=== PATIENT | male | born 1965 | race Caucasian/White ===

== ENCOUNTER 2025-04-22 20:28 | Inpatient (IN) | payer MEDICAID, OTHER, SELFPAY ==
[2025-04-22] VITALS (11 sets, daily range): BP systolic 168–245; BP diastolic 105–145
[2025-04-22] MEDS: NSS 1000 IV (18:15)
[2025-04-22] MEDS: ATIVAN 2 MG IV (18:16)
[2025-04-22] MEDS: ZOFRAN 4 MG IV (18:16)
[2025-04-22 18:17] LABS: Hematocrit 39.6 % (39.0-52.0); Hemoglobin 14.3 g/dL (13.0-18.0); Mean Corp Hgb Conc. 36.1 g/dL (33.0-37.0); Mean Corpuscular Volume 91.0 fL (80.0-94.0); Nucleated Red Blood Cells % 0 % (-); Platelet Count 310 10^3/uL (130-400); Red Cell Dist. Width 12.8 % (11.5-14.5)
[2025-04-22 18:30] LABS: AST (SGOT) 142 U/L (17-59); Albumin 4.1 g/dl (3.5-5.0); Alkaline Phosphatase 158 U/L (38-126); Blood Urea Nitrogen 9 mg/dl (9-20); Calcium 9.3 mg/dl (8.4-10.2); Carbon Dioxide 25 mmol/L (22-30); Chloride 106 mmol/L (98-107); Glucose 143 mg/dl (70-99); Lipase 104 U/L (23-300); Potassium 2.9 mmol/L (3.5-5.1); Sodium 143 mmol/L (135-145); Total Protein 9.8 g/dl (6.3-8.2); eGFR > 60.00
[2025-04-22 18:40] LABS: ALT (SGPT) 89 U/L (0-50)
--- NOTE | 2025-04-22 18:54 | ED.GENMED ---
History of Present Illness
General
Chief Complaint: Withdrawal Symptoms
Time Seen by Provider: 04/22/25 17:42
History of Present Illness
History of Present Illness:
59-year-old male presents from [facility] due to intractable nausea vomiting and tremors. He was brought into corrections last night and admits to using trying and fentanyl yesterday, states he uses 4-5 bags of each daily.
History is otherwise limited as the patient does not cooperate on exam. He is noted to be writhing and diaphoretic
Review of Systems
Review of Systems
Allergies reviewed?: Yes
All Other Systems: ROS reviewed and negative except as documented in HPI and ROS
Phy Exam
Physical Exam
Physical Exam:
GEN: Ill, diaphoretic,
HEENT: Oral mucosa moist, no scleral icterus
Cardiac: Tachycardic
Lung: No respiratory distress, no tachypnea, lungs clear to auscultation
MSK: No gross deformity or injuries
Skin: Good color, no pallor or jaundice, no rashes
Neuro: Alert, moves all extremities
Psych: Calm, cooperative
Course
Orders/Labs/Results
Orders:
Orders
04/22/25 Dinner
NPO
Allow oral meds: No
Allow clear liquids: No
04/22/25 17:54
Lorazepam [Ativan] 2 mg .ROUTE .STK-MED ONE
Ondansetron Injectable [Zofran] 4 mg .ROUTE .STK-MED ONE
04/22/25 17:57
Clonidine [Catapres] 0.2 mg PO NOW STA
Lorazepam [Ativan] 2 mg IV NOW STA
Ondansetron Injectable [Zofran] 4 mg IV NOW STA
Tizanidine [Zanaflex] 4 mg PO NOW STA
04/22/25 18:00
0.9% Sodium Chloride 1000 ml [Nss] 1,000 ml IV BOLUS
04/22/25 18:08
Complete Blood Count/With Diff Urgent
Comprehensive Metabolic Panel Urgent
Lipase Urgent
Magnesium Urgent
Comment: ADD ON
Phosphorus Urgent
Comment: ADD ON
04/22/25 18:49
Electrocardiogram (*1) Urgent
Reason for Study: QTc Monitoring
EKG- Treatment ONCE
04/22/25 18:50
Lactated Ringers [Lr] 1,000 ml IV BOLUS
04/22/25 18:54
Potassium Chloride [KCl] 20 meq 0.9% Sodium Chloride 150 ml [Nss] 150 ml IV NOW
04/22/25 19:04
Diphenhydramine [Benadryl] 25 mg IV NOW STA
Prochlorperazine [Compazine] 10 mg IV NOW STA
04/22/25 20:11
Admit/Transfer Patient As Directed
Co-Sign Provider:
Level of Care: Inpatient admission
Assign to:: ICU
Physician / Group: Drew Galvez
Diagnosis: opiate withdraw, hypertensive urgency, hypokalemia
Reason for Hospitalization: opiate withdraw, hypertensive urgency, hypokalemia
Expected length of stay greater than two midnights?: Yes
ELOS- Estimated Length of Stay in days: 3
I certify the patient meets the requirements for IP care: Yes
PRN Pain Medication Management As Directed
May give lesser potent ordered pain med per pt: Yes
preference::
Protocol:: Medication orders for pain may be administered in a
manner that supports deferring to patient preference
when the pt is:
- Requesting an ordered lesser potent pain medication.
Least to most potent pain medications are defined
as: acetaminophen < NSAID < tramadol < opioids
(morphine, oxycodone, hydromorphone).
- Requesting a lesser dose of the same medication IF
ORDERED.
- Requesting a less intrusive route of administration
if both routes are prescribed by the provider (PO <
IV).
04/22/25 20:12
Code Status As Directed
Resuscitation Status: Full Code
04/22/25 20:15
Dexmedetomidine 400 Mcg/100 ml [Precedex] 400 mcg in 100 ml IV PER PROTOCOL
Indication:: Light Sedation
Goal:: RASS 0 to -2
Maximum dose in mcg/kg/hr:: 1.5
Initial dose in mcg/kg/hr:: 0.2
Titration Instructions:: Titrate by 0.1-0.2 mcg/kg/hr every 30 minutes until RASS 0 to -2 achieved.
Taper Instructions:: If RASS is at or below goal for 4 consecutive hours, decrease infusion by
Taper Instructions:: 0.2 mcg/kg/hr every 2 hours to off.
Over-sedation Instructions:: If CPOT 0-2 (at goal) AND RASS -3 to -5 (below goal) decrease sedative by
Over-sedation Instructions:: 50% first. If pain score remains at goal and RASS remains below goal in
Over-sedation Instructions:: 1 hour, decrease opioid infusion by 50%.
Notify provider:: for sustained HR < 50 bpm or SBP < 90 mmHg
04/22/25 20:18
Urine Drug Abuse Screen Stat
Date Specimen was Collected: 04/23/25
Time Specimen was Collected: 00:25
04/22/25 20:19
Potassium Chloride [KCl] 40 meq PO NOW STA
04/22/25 21:48
HydrALAZINE [Apresoline] 10 mg IV Q4HPRN PRN
Prochlorperazine [Compazine] 5 mg IV Q6HPRN PRN
04/22/25 21:48
Electrocardiogram (*1) Urgent
Reason for Study: Other
Other Reason for Exam: baseline ICU
Comment: upon arrival to ICU (if not done in ED or in last 24 hours)
Front Office Secretary Consult Urgent
Consulting Provider: Earlene Mora
Was physician already notified: Yes
Activity As Directed
Activity Level: As Tolerated
Bedside Glucose Monitoring-ONCE As Directed
Comment: upon arrival to ICU
Notify MD As Directed
Notify physician if: While in ICU level of care:
glucose greater than or equal to 180 mg/dL once, contact provider to initiate Critical
Care Glycemic Protocol Target Range 140-180 mg/dL.
Vital Signs As Directed
Frequency: Per unit guidelines
Weight As Directed
Frequency: Daily
Comment: height and weight upon arrival to ICU.
CR Chest Portable - 1 View Urgent
Comment: upon ICU arrival if not done in ED or in last 24hr
Reason For Exam: baseline ICU
Reason Study Needs to be Portable: Patient Unstable
DX Deep Vein Thrombosis Video Routine
DX Deep Vein Thrombosis Video Routine
04/22/25 22:40
Protime/PTT Urgent
Comment: upon arrival to ICU (if not done in ED or in last 24 hours)
04/23/25 00:00
Heparin 5,000 units SC Q8
04/23/25 06:00
Basic Metabolic Panel IN AM
Complete Blood Count/No Diff IN AM
04/24/25 06:00
Basic Metabolic Panel IN AM
Complete Blood Count/No Diff IN AM
04/25/25 06:00
Basic Metabolic Panel IN AM
Complete Blood Count/No Diff IN AM
Abnormal Lab Results
04/22/25
18:08
WBC 18.3 H 10^3/uL
(4.8-10.8)
RBC 4.35 L 10^6/uL
(4.70-6.10)
MCH 32.9 H pg
(27.0-31.0)
MPV 11.2 H fL
(7.4-10.4)
Abs Immat Gran (auto) 0.1 H 10^3/uL
(0-0.05)
Absolute Neuts (auto) 15.5 H 10^3/uL
(1.4-6.5)
Absolute Monos (auto) 1.1 H 10^3/uL
(0.1-0.6)
Neutrophils % 84.8 H %
(42.2-75.2)
Lymphocytes % 8.5 L %
(20.5-51.1)
Potassium 2.9 L mmol/L
(3.5-5.1)
Creatinine 0.5 L mg/dL
(0.7-1.3)
Glucose 143 H mg/dl
(70-99)
AST 142 H U/L
(17-59)
ALT 89 H U/L
(0-50)
Alkaline Phosphatase 158 H U/L
(38-126)
Total Protein 9.8 H g/dl
(6.3-8.2)
04/22/25 18:08
04/22/25 18:08
Vital Signs
Initial and Last Documented VS:
Initial Vital Signs
Temp Pulse Resp
98.0 F 99 20
04/22/25 17:28 04/22/25 17:28 04/22/25 17:28
Last Documented Vital Signs
Temp Pulse Resp BP Pulse Ox
98.0 F 129 33 174/129 99
04/22/25 17:28 04/23/25 00:17 04/22/25 23:45 04/23/25 00:17 04/22/25 23:45
Procedures
IV Access
Indication: Emergent access required, RN unable to obtain and Physician skill needed
Performed by:: Leandro Lucas PA-C
Site:: L basilic
Gauge:: 18
Ultrasound Guidance: Yes
MDM/Problems Addressed
MDM/Problems Addressed:
59-year-old male presenting [facility] with xylazine and fentanyl withdrawal found to be profoundly hypertensive and tachycardic requiring IV benzodiazepines as well as alpha-ziggy therapy. Ultimately due to worsening symptoms and worsening
agitation the patient was started on dexmedetomidine infusion and will be admitted to the intensive care unit for further management. Maintaining airway adequately on infusion during his time in the ED did not require mechanical ventilation
Comment
Comment:
EKG independently interpreted by me shows a sinus tachycardia at a rate of 102 with a normal QT interval
*Pulse Oximetry
Oxygen Mode of Delivery: Room air
Patient hypoxic: no
*Critical Care Note
Total Time (30-74mins, 75-104mins- exclusive of procedures): 80 mins
comment:
Critical care time: 80 minutes
Critical care time was exclusive of: Separately billable procedures, treating other patients, and teaching time
Critical care was necessary to treat or prevent imminent or life-threatening deterioration of the following conditions: Hypertensive crisis, xylazine withdrawal
Critical care time spent personally by me on the following activities:
[x] Review of old charts
[x] Obtaining history from patient or surrogate
[x] Ordering and review of the laboratory studies
[ ] Ordering and review of radiographic studies
[x] Ordering and performing treatments and interventions
[x] Patient patient's response to treatment
[ ] Development of treatment plan with patient or surrogate
ED Attending Note
-
Portions of this chart may have been created with voice recognition software.� Occasional wrong word or��sound alike� substitutions may have occurred due to the inherent limitations of voice recognition software.
Discharge Plan
Departure
Patient Disposition: Admit
Date of Disposition: 04/22/25
Time of Disposition: 19:49
Admit to: ICU
Presentation/result/management discussed w/ accepting MD/DO: Hospitalist
Discharge Problem:
Multiple substance withdrawal
Interventions
Interventions:
*General Assessment Last Done: 04/22/25 17:28
*ED- Fall Risk Assessment Last Done: 04/22/25 19:19
*Nursing Disposition Last Done: 04/22/25 21:59
ED- Neurological Assessment Last Done: 04/22/25 19:19
ED-Psychological Assessment Last Done: 04/22/25 19:19
Discharge Date and Time
Discharge Date/Time: 04/22/25 22:00
[2025-04-22] MEDS: COMPAZINE 10 MG IV (19:07)
[2025-04-22] MEDS: BENADRYL 25 MG IV (19:07)
[2025-04-22] MEDS: KCL 160 MEQ IV (19:07)
[2025-04-22] MEDS: LR 1000 IV (19:08)
--- NOTE | 2025-04-22 19:53 | HPS.HSE ---
Family Physician
-
Family Physician: [facility]
Chief Complaint
-
withdraw symptoms
History of Present Illness
Patient is a 59-year-old male from [facility] brought to [facility] ED for evaluation of tremors and intractable nausea and vomiting. Patient arrived at [facility] last night and admitted to Fentanyl use of 4-5 bags daily. Unable to obtain any HPI or PMH as patient
not cooperative with assessment questions. He presents tremorous and diaphoretic with tachycardia and hypertension.
Medical History
Past Medical History
Past Medical History: Reports None (unable to obtain )
Past Surgical History: Reports None (unable to obtain )
Social History
Unable to obtain full social history at this time due to: Other (patient not cooperative with exam )
Family History
Family History: Unable to Obtain
Allergies / Home Medications
Allergies reflects when Allergies were last updated in [facility].
Home Medications with original date entered in [facility]
Allergy/Medication List:
Allergies
Allergy/AdvReac Type Severity Reaction Status Date / Time
No Known Allergies Allergy Unverified 04/22/25 17:28
Review of Systems
-
Unable to obtain full review of systems at this time due to: Other (patient uncooperative with exam )
Physical Exam
Vital Signs
Vital Signs
Temp Pulse Resp BP Pulse Ox
98.0 F 124 22 201/145 100
04/22/25 17:28 04/22/25 19:00 04/22/25 19:00 04/22/25 19:00 04/22/25 19:15
Physical Exam
General: Other (tremulous and diaphoretic )
HEENT: Moist mucous membranes
Respiratory: Clear and Non Labored Respirations
Cardiac: Regular Rhythm and Tachycardia
GI: Soft and Normal Bowel Sounds
Rectal: Deferred by Provider
Musculoskeletal: No Clubbing, No Cyanosis and No Edema
Skin: IV/Catheter Site
Neuro: Alert
Psych: Calm
Laboratory Results
-
04/22/25 18:08
04/22/25 18:08
Laboratory Results
Total Bilirubin 1.3 mg/dl (0.2-1.3) 04/22/25 18:08
AST 142 U/L (17-59) H 04/22/25 18:08
ALT 89 U/L (0-50) H 04/22/25 18:08
Alkaline Phosphatase 158 U/L (38-126) H 04/22/25 18:08
Lipase 104 U/L (23-300) 04/22/25 18:08
Data Reviewed
-
Medical Tests (Nuc Med, Echo, EKG etc): Report Reviewed by me (EKG: SINUS TACHYCARDIA BIATRIAL ENLARGEMENT)
Lab Data: Labs Reviewed by me (WBC 18.3, Neut 84.8, K+ 2.9, AST 142, ALT 89, Alk Phos 158, tot protein 9.8)
Impression/Plan
-
IMPRESSION/PLAN:
#withdraw symptoms 2/2 opiate use disorder
reported 4-5 bag fentanyl use daily to [facility] at intake, stated last use in 2 days
WBC 18.3, Neut 84.8, K+ 2.9, AST 142, ALT 89, Alk Phos 158, tot protein 9.8
EKG: SINUS TACHYCARDIA
BIATRIAL ENLARGEMENT
- Admit to ICU
- Precedex gtt
- PRN IV Benadryl
- Consult Facilities Coordinator
- supportive care
#hypertensive urgency
- clonidine given in ED
- monitor need for further PRN medication
- Hydralazine 10mg PRN SBP>180/DBP>110
#hypokalemia
K+2.9
- KCl given IV and PO
- monitor lytes and replete as indicated
Code status: full code
DVT prophylaxis: heparin sq
[2025-04-22] MEDS: CATAPRES 0.2 MG PO (20:05)
[2025-04-22] MEDS: ZANAFLEX 4 MG PO (20:05)
--- NOTE | 2025-04-22 20:25 | W.PN.UPDATE ---
Update Note
Progress Note Update
I could not get any information from the patient is displaying active WDS
Information gathered by chart review and speaking with the ER staff.
This note serves as an addendum to the H&P by knit tubing dyer JARRET Scarlet Martin
HPI
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
- was brought into [facility] last night
- reports using IV Trank ( Xylazine) & Fentanyl yesterday
- uses 4-5 bags of each daily.
- not cooperate on exam.
- writhing and diaphoretic
Selected Entries
04/22/25
18:41 04/22/25
19:00
Blood pressure 203/133 201/145
PE
Gen: looks toxic and diaphoretic ,
HEENT: flushed face , easily arousable
Lungs: symmetric AE
Cor: tachycardic , hypertensive
Abdomen: benign exam
CREAM BEATER: severe peripheral tremors of
Skin ;multiple healing track garcia
MS: no edema , mottled skin in Tisha
Relevant Data
Labs
04/22/25
18:08
WBC 18.3 H
Potassium 2.9 L
Creatinine 0.5 L
eGFR > 60.00
AST 142 H
ALT 89 H
Alkaline Phosphatase 158 H
Total Protein 9.8 H
Lipase 104
EKG
SINUS TACHYCARDIA
BIATRIAL ENLARGEMENT
ABNORMAL ECG
NO PREVIOUS ECGS AVAILABLE
Last hospitalist admission:
ASSESSMENT & PLAN
Pending Rx reconciliation
Acute severe Fentanyl & Xylazine WDS
Severe autonomic hyperarousal symptoms
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
- ER Rx;
Clonidine 0.2mg + IV Benadryl 25mg + IV Ativan 2mg + LR IV 1L + IV Compazine 10 mg + Zanaflex 4mg PO
- so far protecting AW
- hi risk for intubation
- Initiated Precedex gtt at ER
- LR IV
Hypokalemia
- s/p IV KCL kedar 20 + PO KCL 40
Hypertensive urgency due to acute severe Fentanyl & Xylazine WDS
- IV Hydralazine 10mg q4H PRN fo SBP > 185, DBP > 110
- May need Nicardipine gtt
DVT Px: SQH
Full code
ICU
Total Critical Care Time__55___ minutes.
I was immediately available to the patient and staff.
I personally examined, reviewed labs, diagnostic images/reports, interpretations, treatment plans, discussed patient care with other providers and family or caregivers (if patient is unable to make decisions), entered orders as appropriate and
documented the medical record.
[2025-04-22] MEDS: PRECEDEX 100 IV (20:34)
[2025-04-22 22:07] LABS: Glucose - Point of Care 110 mg/dl (70-99)
[2025-04-22 22:59] LABS: Magnesium 1.8 mg/dl (1.6-2.3)
[2025-04-23] VITALS (25 sets, daily range): BP systolic 127–182; BP diastolic 82–129; BMI 24.8
[2025-04-23] MEDS: HEPARIN 5000 UNITS SC ×4 (00:03→23:46)
[2025-04-23] MEDS: APRESOLINE 10 MG IV ×4 (00:17→18:05)
[2025-04-23] MEDS: COMPAZINE 10 MG IV (01:28)
--- NOTE | 2025-04-23 01:51 | PTCARENOTE ---
Pt admit to ICU from ED. Pt oriented, uncooperative at times. MSAS and COWS protocol. Vomiting occasionally. Mild diaphoresis. Tremors/chills. No fever. Precedex gtt infusing as charted in worklist. PRN hydralazine and compazine - see DEC. Voiding
in urinal - clear yellow.
[2025-04-23] MEDS: SUBUTEX 8 MG SL ×2 (02:00→03:41)
[2025-04-23] MEDS: LR 1000 IV ×3 (02:01→23:41)
[2025-04-23] MEDS: PRECEDEX 100 IV ×5 (02:07→19:11)
[2025-04-23] MEDS: NSS (PRESERVATIVE FREE) 0.5 ML IV ×3 (02:59→10:06)
[2025-04-23] MEDS: ATIVAN 1 MG IV ×3 (02:59→10:06)
[2025-04-23] MEDS: ATIVAN 2 MG IV ×2 (04:15→05:48)
[2025-04-23] MEDS: NSS (PRESERVATIVE FREE) 1 ML IV ×2 (04:16→05:49)
[2025-04-23] MEDS: ZANAFLEX 2 MG PO ×2 (04:31→10:06)
[2025-04-23 05:56] LABS: INR 1.23; PT 16.0 Sec (11.4-14.6)
[2025-04-23 05:57] LABS: APTT 27.4 Sec (23.4-35.0)
[2025-04-23 05:58] LABS: Hematocrit 36.4 % (39.0-52.0); Hemoglobin 13.3 g/dL (13.0-18.0); Mean Corp Hgb Conc. 36.5 g/dL (33.0-37.0); Mean Corpuscular Volume 89.9 fL (80.0-94.0); Platelet Count 228 10^3/uL (130-400); Red Cell Dist. Width 13.0 % (11.5-14.5)
[2025-04-23 06:20] LABS: Blood Urea Nitrogen 10 mg/dl (9-20); Calcium 9.1 mg/dl (8.4-10.2); Carbon Dioxide 22 mmol/L (22-30); Chloride 110 mmol/L (98-107); Glucose 132 mg/dl (70-99); Magnesium 1.6 mg/dl (1.6-2.3); Potassium 3.1 mmol/L (3.5-5.1); Sodium 144 mmol/L (135-145); eGFR > 60.00
--- NOTE | 2025-04-23 06:37 | PTCARENOTE ---
PRN subutex and ativan for elevated COWS and MSAS respectively - see MAR. Pt hallucinating, but pleasant and cooperative. Able to be redirected. Continuing to void clear yellow urine. N/V much more controlled.
[2025-04-23] MEDS: FOLVITE 1 MG PO (07:29)
[2025-04-23] MEDS: THIAMINE INJECTION 200 MG IV ×3 (07:30→23:46)
--- NOTE | 2025-04-23 07:51 | CON.INTV ---
Consultation
Consultation Request
Date/Time Consultation Requested: 04/23
Date/Time Consultation Performed: 04/23
Reason for Consultation: Critical care
Medical History
-
History of Present Illness:
History obtained primarily from the chart as patient is unable to provide history. He appears to be hallucinating, asking about how much things cost. He is not oriented to place. 59-year-old male recently imprisoned at [facility] about 2 days ago. Within 24 hours, patient developed increased nausea, emesis, tremors. According to records, patient taking 4-5 bags of fentanyl/drank a day in addition to alcohol/caffeinated beverage, 4 cans a day. Upon arrival to
[facility], afebrile, pulse 99, breathing at 20, blood pressure 174/129. At 1 point blood pressure increased to 240/90. Patient required IV benzodiazepine, hydralazine, was started on Precedex for suspected withdrawal. Was given IV
fluids, clonidine x 1, Ativan x 1, Zanaflex. Patient admitted to ICU for further management
.
PMH: Unable to obtain. Polysubstance abuse
Past Medical History
Past Medical History: None (See above)
Past Surgical History: None (see above)
Social History
Tobacco: Other (Unable to obtain)
Alcohol: Daily (Alcohol/caffeinated beverage daily)
Drug: IVDA (Fentanyl, Solazine)
Family History
Family History: Unable to Obtain
Allergies / Home Medications
Allergies
Allergy/AdvReac Type Severity Reaction Status Date / Time
No Known Allergies Allergy Unverified 04/22/25 17:28
Home Medications
�Medication �Instructions �Recorded �Confirmed �Last Taken �Type
Ativan 2 mg IM ONCE 04/22/25 04/22/25 04/22/25 History
acetaminophen 300 mg-codeine 30 mg 0 tab PO .TAPER 04/22/25 04/22/25 04/22/25 History
tablet
clonazepam 2 mg tablet 0 mg PO .TAPER 0704/22/25 04/22/25 History
clonidine HCl 0.1 mg tablet 0.1 mg PO ONCE 04/22/25 04/22/25 04/22/25 History
doxycycline monohydrate 100 mg 100 mg PO BID 04/22/25 04/22/25 04/22/25 History
capsule
folic acid 1 mg tablet 1 mg PO DAILY 04/22/25 04/22/25 04/22/25 History
magnesium oxide 400 mg PO DAILY 04/22/25 04/22/25 04/22/25 History
multivitamin 1 tab PO DAILY 04/22/25 04/22/25 04/22/25 History
ondansetron HCl 4 mg tablet 4 mg PO BIDPRN PRN nausea/vomiting 04/22/25 04/22/25 04/22/25 History
thiamine HCl (vitamin B1) 100 mg 100 mg PO DAILY 04/22/25 04/22/25 04/22/25 History
tablet
Review of Systems
-
Unable to Obtain full review of systems at this time due to: Acuity (Unable to obtain history from patient)
Vitals / Labs / Diagnostic Testing
Vital Signs
Temp Pulse Resp BP Pulse Ox
99.8 F 127 42 164/111 98
04/23/25 03:45 04/23/25 06:15 04/23/25 06:15 04/23/25 06:00 04/23/25 06:15
Lab Data
04/23/25 05:39
04/23/25 05:39
Laboratory Results
04/23/25
05:39
PT 16.0 H
INR 1.23
APTT 27.4
Diagnostic Testing:
Physical Exam
-
HEENT: Normocephalic, Anicteric and Other (Right upper extremity midline)
Cardiovascular: S1/S2, Regular Rhythm (Tachycardic), Murmur (n), Rub (n) and Peripheral Edema (n)
Respiratory: Wheeze (n), Rales (n) and Rhonchi (n)
GI: Soft, Non Distended and Non Tender
Neurology: Awake, Alert (Disoriented, hallucinating) and Tremors (Minimal tremor)
Skin: Other (Scattered lesions lower extremities, appear to be needle injuries, no drainage, no erythema)
General: Comfortable
Assessment
-
59-year-old male with polysubstance abuse, daily fentanyl/tranq, daily alcohol/caffeine use, presents with withdrawal symptoms from [facility]
Acute withdrawal symptoms
Daily fentanyl, plus or minus xylazine
Urine tox screen positive for opiate, methadone, fentanyl, benzo
Multiple lower extremity needle garcia
Hypertension
Acute transaminitis
Tachycardia
Leukocytosis
Hypokalemia
Abnormal EKG, LVH, P pulmonale
Coffee ground emesis
Plan/recommendations
At this time, patient appears to be comfortable but remains critically ill, likely withdrawal
Per records, patient admits to daily fentanyl use, symptoms seem to start about 24 hours [facility] being at [facility]
Tachycardia noted, with LVH and P pulmonale
Presented with blood pressure 240/140, now improved
Tachycardia as high as 150s
Moving forward
Continue with withdrawal protocol
Per discussion with pharmacy, patient did not receive micro dosing protocol
For now we will continue with buprenorphine, tizanidine, clonidine
Will add phenobarbital protocol given daily alcohol use. Consider midazolam in place of lorazepam given shortage
Depending on response to above, we will consider feasibility of micro dosing protocol with pharmacy
Patient will likely require oxycodone or IV equivalent as well. This will be determined later today based on clinical course
Remains on Precedex
Abnormal EKG noted
Follow-up for now
No oxygen requirement, chest x-ray unremarkable. There is cardiomegaly noted
Patient had coffee-ground emesis preadmission
Continue IV Protonix therapy
Replete electrolytes
Reviewed with critical care nursing, respiratory care, pharmacy
TCCT 31 min
--- NOTE | 2025-04-23 08:36 | PTCARENOTE ---
report received, assessments per work list. patient oriented to self only, actively hallucinating. initially drowsy, restless at present. see MSAS,COWS. prn ativan administered. sinus tach, bigeminal rhythm. telephone solicitor notified of am labs, orders
received. Precedex per work list. VAT team updated with need for additional access. abdomen soft,hyperactive bowel sounds. voided clear yellow urine when prompted in urinal, protective foams applied. PSYCHIATRICF staff at bedside. shackle right ankle. safe
environment maintained
[2025-04-23] MEDS: MAGNESIUM SULFATE 50 IV (08:45)
[2025-04-23] MEDS: KCL 270 MEQ IV (08:51)
--- NOTE | 2025-04-23 08:52 | W.PN.HOSP.TC ---
Today's Communication/Plan
-
see A/P
Assessment / Plan
Assessment / Plan
HPI: 59-year-old male from [facility] brought to [facility] ED for evaluation of tremors and intractable nausea and vomiting. Patient arrived at [facility] the night [employer] and admitted to Fentanyl use of 4-5 bags daily.
Unable to obtain any HPI or PMH as patient was not cooperative with assessment. He was tremulous and diaphoretic with tachycardia and hypertension.
A/P:
# withdraw symptoms 2/2 opiate use disorder +- Xylazine
reported 4-5 bag fentanyl use daily to [facility] at intake, stated last use in 2 days
tox screen positive for opiate, methadone, fentanyl, benzo
Cont Precedex gtt, PRN IV Benadryl, Tizanidine PRN, Clonidine PRN,
On buprenorphine microdosing
NPO with IVF RL support
Cont ICU level of care with Paralegal Internship support
# Transaminitis likely reactive
Follow LFT
# SIRS POA likely due to withdrawal
# Suspect reactive leucocytosis due to withdrawal
follow WBC
Check blood cultures x2, CXR unrevealing
can cover with Ceftriaxone/vanc while await blood cultures
# Hypokalemia
# Hypomagnesemia
replete lytes
# hypertensive urgency
Clonidine PRN,
Hydralazine PRN
Code status: full code
DVT prophylaxis: heparin sq
DW RN
total time 51 min
Anticipated Discharge: > 48 hours
Subjective/Interval History
-
Date of Service: April 23, 2025
Objective Data
-
Labs:
Laboratory Results
04/23/25
05:39
WBC 19.7 H
Hgb 13.3
Hct 36.4 L
Plt Count 228 D
PT 16.0 H
INR 1.23
APTT 27.4
Sodium 144
Potassium 3.1 L
Chloride 110 H
Carbon Dioxide 22
BUN 10
Creatinine 0.6 L
Glucose 132 H
Calcium 9.1
Vital Signs:
Vital Signs
Temp Pulse Resp BP Pulse Ox
36.7 C 127 42 164/111 98
04/23/25 08:04 04/23/25 06:15 04/23/25 06:15 04/23/25 06:00 04/23/25 06:15
I&O
04/22/25 04/23/25 04/24/25
06:59 06:59 06:59
Output Total 450 / 450
Balance -450 / -450
Review of Systems
-
Unable to obtain full review of systems at this time due to: Acuity
Physical Exam
-
General: Well Developed, Well Nourished, No Apparent Distress and Comfortable; Negative Respiratory Distress
HEENT: Normocephalic, Atraumatic, Nose Appears Normal and Ears Appear Normal; Negative Oxygen
Respiratory: Clear to Auscultation and Non Labored Respirations; Negative Accessory Resp Muscle Use
Cardiac: Regular Rhythm, S1/S2 and Tachycardic
GI: Soft, Nontender, Nondistended and Normal Bowel Sounds
Skin: Warm and Dry
Neuro: Awake
Psych: Calm and Confused
Data Reviewed
-
Labs: Labs Reviewed by me
[2025-04-23] MEDS: ROCEPHIN 1000 MG IV (11:05)
[2025-04-23] MEDS: STERILE WATER FOR INJECTION 10 ML IV (11:06)
[2025-04-23] MEDS: FLUSH (NSS) 2 FLUSH IV (11:06)
--- NOTE | 2025-04-23 11:13 | PHA.VAN.IN ---
Assessment
- Assessment
Renal Function: Appears similar to baseline
Concomitant Antimicrobials: ceftriaxone
AUC Dosing Plan
- Dosing Variables
Dosing Weight (kg): 68
Dosing CrCl (ml/min): 125
Vd coefficient (L/kg): 0.7
- Empiric Dosing
Maintenance Regimen: Vanc 1250mg Q12H
Estimated AUC (mcg*h/mL): 525
Estimated Peak (mcg*h/mL): 36
Estimated Trough (mcg/ml): 11.6
Estimated Half Life (H): 6.4
Will give now, 2200 then 0600 in lieu of load (approximately Q8 interval) then switch to Q12H given age > 35 y/o for maintenance dosing
- Monitoring
No levels ordered at this time: consider levels in next few days
Pharmacokinetics Vancomycin I
- -
Patient Age: 59
Patient Sex: Male
Vancomycin Day #: 1
Indication: Other
Requesting Provider: Dr. Wong
Pertinent Antimicrobial Allergies:
NKDA
Height / Weight:
Actual Weight 67.6 kg
Pertinent Past Medical History: IV MARCIO
- Vital Signs / Lab Results
Temp Pulse Resp BP Pulse Ox
98.0 F 121 33 180/118 98
04/23/25 08:04 04/23/25 10:15 04/23/25 10:15 04/23/25 10:06 04/23/25 10:15
Lab Results - Hematology
04/22/25 04/23/25
18:08 05:39
WBC 18.3 H 19.7 H
Lab Results - Chemistry
04/22/25 04/23/25
18:08 05:39
BUN 9 10
Creatinine 0.5 L 0.6 L
Albumin 4.1
[2025-04-23] MEDS: PHENOBARBITAL 97.5 MG IV ×3 (11:14→22:52)
[2025-04-23] MEDS: BELBUCA 300 MCG BUCCAL ×4 (11:37→23:46)
[2025-04-23] MEDS: PROTONIX IV 40 MG IV ×2 (11:37→19:14)
[2025-04-23] MEDS: VANCOCIN 275 MG IV ×2 (11:37→22:51)
[2025-04-23] MEDS: NSS (PRESERVATIVE FREE) 10 ML IV ×2 (11:37→19:14)
--- NOTE | 2025-04-23 13:42 | PTCARENOTE ---
reassessed, midline inserted this am, good blood returns. precedex per work list. see MSAS, COWS scoring. incontinent large amount yellow urine. condom cath applied
--- NOTE | 2025-04-23 15:48 | CM ---
Patient is inmate with [facility]. Unable to obtain history due to patient being in opiate withdrawal, hallucinating. Contacted [facility] per MD request. [facility] will not see patient as he is not returning to the community after discharge. They are willing
to speak with patient once released from residential. [facility] POC[facility].
[2025-04-23] MEDS: OXYCONTIN (CONTROLLED RELEASE) 40 MG PO ×2 (15:54→23:46)
--- NOTE | 2025-04-23 16:31 | PTCARENOTE ---
patient reassessed. precedex wean per work list. able to take oral medications without signs aspiration. see MSAS and COWs
--- NOTE | 2025-04-23 21:20 | PTCARENOTE ---
Pt received start of shift, HR ST on telemetry. Disoriented except to name. Cooperative. MSAS and COWS protocol. Voiding clear yellow urine into CC #25.
[2025-04-23] MEDS: CATAPRES 0.2 MG PO (22:52)
[2025-04-24] VITALS (25 sets, daily range): BP systolic 85–145; BP diastolic 54–103; BMI 24.8
--- NOTE | 2025-04-24 00:31 | PTCARENOTE ---
Pt reassessed. Titrating precedex down as charted in worklist. Pt remains disoriented to all but self. No further changes in assessment.
[2025-04-24 04:04] LABS: Hematocrit 35.4 % (39.0-52.0); Hemoglobin 13.1 g/dL (13.0-18.0); Mean Corp Hgb Conc. 37.0 g/dL (33.0-37.0); Mean Corpuscular Volume 89.8 fL (80.0-94.0); Platelet Count 167 10^3/uL (130-400); Red Cell Dist. Width 13.6 % (11.5-14.5)
[2025-04-24 04:11] LABS: ALT (SGPT) 60 U/L (0-50); AST (SGOT) 92 U/L (17-59); Albumin 3.1 g/dl (3.5-5.0); Alkaline Phosphatase 116 U/L (38-126); Blood Urea Nitrogen 12 mg/dl (9-20); Calcium 8.2 mg/dl (8.4-10.2); Carbon Dioxide 22 mmol/L (22-30); Chloride 112 mmol/L (98-107); Estimated Creatinine Clearance 117 ml/min; Glucose 100 mg/dl (70-99); Magnesium 1.9 mg/dl (1.6-2.3); Potassium 2.8 mmol/L (3.5-5.1); Sodium 142 mmol/L (135-145); Total Protein 7.4 g/dl (6.3-8.2); eGFR > 60.00
[2025-04-24] MEDS: KCL 270 MEQ IV ×3 (05:07→19:23)
[2025-04-24] MEDS: BELBUCA 300 MCG BUCCAL ×2 (05:11→08:32)
[2025-04-24] MEDS: VANCOCIN 275 MG IV (05:55)
--- NOTE | 2025-04-24 06:09 | PTCARENOTE ---
Precedex weaned off - see worklist. Pt Pox 90-92%, 2L NC placed on pt. POX 94%. Am labs drawn and sent, K low - repletion ordered and administered (see MAR).
--- NOTE | 2025-04-24 06:25 | PTCARENOTE ---
Pt self-removed NGT while restrained. Entire tube accounted for
--- NOTE | 2025-04-24 07:52 | W.PN.INTV ---
Today's Communication / Plan
Recommendations
Continue antibiotics, ceftriaxone
Discontinue vancomycin
Continue phenobarbital
Continue withdrawal protocol, buprenorphine micro dosing
Clonidine, tizanidine, oxycodone
Assessment
-
59-year-old male with polysubstance abuse, daily fentanyl/tranq, daily alcohol/caffeine use, presents with withdrawal symptoms from [facility]
Acute withdrawal symptoms
Daily fentanyl, plus or minus xylazine
Urine tox screen positive for opiate, methadone, fentanyl, benzo
Multiple lower extremity needle garcia
Suspected right lower lobe pneumonia
Hypertension
Acute transaminitis
Tachycardia
Leukocytosis
Hypokalemia
Abnormal EKG, LVH, P pulmonale
Coffee ground emesis
Plan/recommendations
At this time, patient appears to be comfortable but remains critically ill
Withdrawal symptoms seem to be improved but patient with diaphoresis, rapid shallow breathing, mild oxygen requirement
Has been weaned off Precedex over the last 24 hours, remains on phenobarbital
Per records, patient admits to daily fentanyl use, symptoms seem to start about 24 hours after being at correctional facility
Tachycardia noted, with LVH and P pulmonale
Presented with blood pressure 240/140, now improved
Tachycardia as high as 150s
Chest x-ray with right lower lobe pneumonia which is new when compared to admission chest x-ray. Leukocytosis noted
Moving forward
Continue with withdrawal protocol
Microdosing buprenorphine, tizanidine, clonidine, oxycodone
Continue phenobarbital protocol given daily alcohol use.
Precedex has been weaned off
Thiamine, folate
Abnormal EKG noted
Follow-up for now
No oxygen requirement, chest x-ray unremarkable. There is cardiomegaly noted
Chest x-ray with right lower lobe pneumonia
Given coffee-ground emesis premonition, may be aspiration event
Repeat EKG in a.m.
Remains on ceftriaxone, vancomycin. Discontinue vancomycin if MRSA screen negative
Patient had coffee-ground emesis preadmission
Continue IV Protonix therapy
Replete electrolytes
Reviewed with critical care nursing, respiratory care, pharmacy
Reviewed with primary service
TCCT 31 min
Subjective Dataa
Subjective Data
Date of Service:
Date of Service: April 24, 2025
Subjective:
Patient remains critically ill, but overall improved with regards to mental status. He is more cooperative. However he is more short of breath, requiring oxygen, tachypneic with rapid shallow breathing.
Objective Data
Data Reviewed
Vital Signs / I&O / Oxygen:
Vital Signs
Temp Pulse Resp BP Pulse Ox
98.5 F 128 35 108/74 94
04/24/25 07:20 04/24/25 06:30 04/24/25 06:30 04/24/25 06:06 04/24/25 06:30
Intake and Output
04/23/25 04/24/25 04/25/25
06:59 06:59 06:59
Intake Total 3408.9 / 3408.9
Output Total 850 / 850 2400 / 2400
Balance -850 / -850 1008.9 / 1008.9
SaO2 94
Physical Exam
General: Respiratory Distress (Rapid shallow breathing, able to answer simple questions.) and Other (Diaphoretic)
HEENT: Normocephalic
Cardiovascular: S1-S2, Regular Rhythm (Tachycardic), Murmur (n) and Rub (n)
Respiratory: Wheeze (n), Crackles (n), Rhonchi (few), Accessory Resp Muscle Use (Mild) and Stridor (n)
GI: Soft, Non Distended and Non Tender
Neurology: Awake, Alert and Tremors (Absent)
Skin: Cyanosis (n), Jaundice (n) and Rash (n)
Labs/Micro/Reports
Lab Data
04/24/25 03:32
04/24/25 03:32
Microbiology
04/23/25 01:39 Nose MRSA Screen - Final
No Methicillin Resistant Staphylococcus aureus isolated.
--- NOTE | 2025-04-24 08:19 | W.PN.HOSP.TC ---
Today's Communication/Plan
-
see A/P
Assessment / Plan
Assessment / Plan
HPI: 59-year-old male from [facility] brought to [facility] ED for evaluation of tremors and intractable nausea and vomiting. 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
Unable to obtain any HPI or PMH as patient was not cooperative with assessment. He was tremulous and diaphoretic with tachycardia and hypertension.
A/P:
# withdraw symptoms 2/2 opiate use disorder +- Xylazine
# SIRS POA likely due to withdrawal
reported 4-5 bag fentanyl use daily to [facility] at intake, stated last use in 2 days
tox screen positive for opiate, methadone, fentanyl, benzo
s/p Precedex gtt,
Cont PRN IV Benadryl, Tizanidine PRN, Clonidine PRN,
On buprenorphine microdosing
Cont IVF NSS with K
SPL eval prior to starting diet
Cont ICU level of care with Flavor Room Worker support
# Transaminitis likely reactive , improving
Follow LFT
# SIRS POA likely due to withdrawal
# Suspect reactive leucocytosis due to withdrawal
follow WBC, remain elevated at 20 today
Follow blood cultures x2,
cover with empiric Ceftriaxone/vanc while await blood cultures
Check CRP in the morning
# Acute hypoxic respiratory insufficiency
Placed on 2L NC
Check repeat CXR 04/24
Cont ABx as stated above
SPL eval prior to starting diet
# Hypokalemia
# Hypomagnesemia
replete lytes
# hypertensive urgency
Now hypotension
Clonidine PRN, Hydralazine PRN
Code status: full code
DVT prophylaxis: heparin sq
DW Flavor Room Worker
DW RN
total time 51 min
Anticipated Discharge: > 48 hours
Subjective/Interval History
-
Date of Service: April 24, 2025
Objective Data
-
Labs:
Laboratory Results
04/24/25
03:32
WBC 20.0 H
Hgb 13.1
Hct 35.4 L
Plt Count 167 D
Sodium 142
Potassium 2.8 L
Chloride 112 H
Carbon Dioxide 22
BUN 12
Creatinine 0.5 L
Glucose 100 H
Calcium 8.2 L
Total Bilirubin 1.1
AST 92 H
ALT 60 H
Alkaline Phosphatase 116
Vital Signs:
Vital Signs
Temp Pulse Resp BP Pulse Ox
36.9 C 128 35 108/74 94
04/24/25 07:20 04/24/25 06:30 04/24/25 06:30 04/24/25 06:06 04/24/25 06:30
I&O
04/23/25 04/24/25 04/25/25
06:59 06:59 06:59
Intake Total 3408.9 / 3408.9
Output Total 850 / 850 2400 / 2400
Balance -850 / -850 1008.9 / 1008.9
Review of Systems
-
Unable to obtain full review of systems at this time due to: Acuity
Physical Exam
-
General: Well Developed, Well Nourished, Comfortable and Respiratory Distress
HEENT: Normocephalic, Atraumatic, Nose Appears Normal, Ears Appear Normal and Oxygen (2L NC)
Respiratory: Clear to Auscultation and Non Labored Respirations; Negative Accessory Resp Muscle Use
Cardiac: Regular Rhythm, S1/S2 and Tachycardic
GI: Soft, Nontender, Nondistended and Normal Bowel Sounds
Skin: Warm and Dry
Neuro: Awake
Psych: Calm and Confused
Data Reviewed
-
Labs: Labs Reviewed by me
[2025-04-24] MEDS: CATAPRES 0.2 MG PO ×3 (08:32→21:40)
[2025-04-24] MEDS: OXYCONTIN (CONTROLLED RELEASE) 40 MG PO ×3 (08:32→23:57)
[2025-04-24] MEDS: FOLVITE 1 MG PO (08:32)
[2025-04-24] MEDS: PHENOBARBITAL 97.5 MG IV ×3 (08:32→21:41)
[2025-04-24] MEDS: NSS (PRESERVATIVE FREE) 10 ML IV ×2 (08:33→19:31)
[2025-04-24] MEDS: PROTONIX IV 40 MG IV ×2 (08:33→19:31)
[2025-04-24] MEDS: HEPARIN 5000 UNITS SC ×3 (09:02→23:57)
[2025-04-24] MEDS: THIAMINE INJECTION 200 MG IV ×3 (09:02→23:57)
[2025-04-24] MEDS: NSS with KCL 20 MEQ 1000 IV ×2 (09:11→19:31)
[2025-04-24] MEDS: LR IV (09:20)
--- NOTE | 2025-04-24 09:24 | PTCARENOTE ---
report received. assessments per work list. patient drowsy,m arouses. orient to person, place 'hospital' and month/year. diaphoretic, rigors. Hospitalist at bedside, orders received. lungs with coarse rhonchi bilaterally, moist cough productive for
thin white secretions. monitor sinus tachycardia. right mid line with good blood return. K rider continues. abdomen soft, hypoactive bowel sounds. condom cath in place, yellow urine. sports team manager in to evaluate patient. safe environment maintained
--- NOTE | 2025-04-24 09:25 | PHA.VAN.FU ---
Vancomycin Assessment / Plan
- Assessment
Renal Function: Stable
WBC's are: Trending Up
In the past 24 hrs, patient has been: Afebrile
Concomitant Antimicrobials: Ceftriaxone
- Dosing Plan
Continue: Vancomycin 1250mg Q12H.
- Monitoring Plan
No level(s) ordered at this time: If continued will consider levels for Sunday
- Follow Up
Pharmacy will continue to follow.
Vancomycin Follow UP
- -
Patient Age: 59
Patient Sex: Male
Vancomycin Day #: 2
Indication: Other
Requesting Provider: Dr. Wong
Pertinent Antimicrobial Allergies:
NKDA
Height / Weight:
Height 5 ft 5 in
Actual Weight 67.5 kg
Pertinent Past Medical History: IV MARCIO
- Vital Signs / Lab Results
Temp Pulse Resp BP Pulse Ox
98.5 F 120 35 124/93 94
04/24/25 07:20 04/24/25 08:32 04/24/25 06:30 04/24/25 08:32 04/24/25 06:30
Lab Results - Hematology
04/22/25 04/23/25 04/24/25
18:08 05:39 03:32
WBC 18.3 H 19.7 H 20.0 H
Lab Results - Chemistry
04/22/25 04/23/25 04/24/25
18:08 05:39 03:32
BUN 9 10 12
Creatinine 0.5 L 0.6 L 0.5 L
Estimated Creat Clear 117
Albumin 4.1 3.1 L
Microbiology Results
04/23/25 01:39 MRSA Screen - Final
Nose No Methicillin Resistant Staphylococcus aureus isolated.
--- NOTE | 2025-04-24 09:45 | PTOTSP ---
Speech Therapy Evaluation:
Pt with precipitating risk factors of dysphagia including altered mental status in the setting of withdraw symptoms. Pt lethargic but participatory in evaluation. Mild oral impairments evident, likely related to mentation. No overt s/sx of
aspiration across trials. Risk of aspiration and related pulmonary complications increased given poor oral hygiene/decayed teeth.
Recommend:
1. Initiate cautious IDDSI 6 (soft and bite sized solids) and thin liquids
2. Only feed when fully awake, alert, and accepting
3. 1:1 assistance and supervision
4. d/c oral diet if pt demonstrating s/sx of aspiration or worsening in respiratory status/chest imaging
5. Strict aspiration precautions
6. PRESIDENT [employer] CEO [employer] to follow
[2025-04-24] MEDS: ROCEPHIN 1000 MG IV (09:55)
[2025-04-24] MEDS: STERILE WATER FOR INJECTION 10 ML IV (09:55)
[2025-04-24] MEDS: ZANAFLEX 2 MG PO ×2 (09:56→15:11)
[2025-04-24] MEDS: FLUSH (NSS) IV ×2 (10:00→10:53)
--- NOTE | 2025-04-24 10:33 | PTCARENOTE ---
cxr completed, prn dose zanaflex given. patient less diaphoretic. reviewed with pharmacist, Rt and pediatrician active practice during rounds
[2025-04-24] MEDS: ROXICODONE 20 MG PO ×3 (11:00→21:40)
[2025-04-24] MEDS: CATAPRES 0.1 MG PO (11:26)
[2025-04-24 12:10] LABS: Urine Character Clear (Clear)
[2025-04-24 12:17] LABS: Urine Red Blood Cell 0-2 /HPF (0-2); Urine Squamous Cell 0-2 /LPF (Few); Urine White Cell 0-2 /HPF (0-5)
--- NOTE | 2025-04-24 12:20 | PTCARENOTE ---
patient reassessed, urine sent. see PRN MAR administration for restlessness and pain. remains tachycardic and diaphoretic. coarse breath sounds persist. pulmonary toileting, expectorating small amount white secretions
[2025-04-24] MEDS: SUBUTEX 2 MG SL ×3 (12:42→21:40)
--- NOTE | 2025-04-24 15:14 | CM ---
Discharge POC: Return to [facility].
[2025-04-24] MEDS: FLAGYL 500 MG 100 IV ×2 (15:22→23:56)
--- NOTE | 2025-04-24 15:27 | PTCARENOTE ---
patient reassessed. pulmonary toileting continues, on room air.
--- NOTE | 2025-04-24 17:49 | PTCARENOTE ---
patient restless, c/o pain. see prn oxycodone administration. safe environment maintained. labs drawn. voiding lizeth urine. poor appetite, but fed patient without overt signs aspiration
[2025-04-24 18:10] LABS: Potassium 3.3 mmol/L (3.5-5.1)
--- NOTE | 2025-04-24 18:25 | PTCARENOTE ---
Cement Contractor CONSTRUCTION SALES MANAGER updated with patient lab results, orders pending
--- NOTE | 2025-04-24 20:00 | PTCARENOTE ---
Received pt. at 1900. Pt. currently in bed. Awake and alert. Hallucinating intermittently, but is calm. No complaints of pain/discomfort. Afebrile. Heart rhythm sinus tachy. Blood pressure normotensive. Currently on room air. Lungs sound coarse. PO
diet, good appetite. Voiding without issue. Skin as documented. Discussed plan of care with patient. Vital signs stable at this time.
[2025-04-25] VITALS (23 sets, daily range): BP systolic 108–154; BP diastolic 87–122; BMI 25.0
--- NOTE | 2025-04-25 | PTCARENOTE ---
Pt. assessment unchanged. Mild hallucinations intermittently. Cooperative, able to redirect easily. Vital signs stable at this time.
[2025-04-25] MEDS: ROXICODONE 20 MG PO (02:01)
[2025-04-25] MEDS: ZANAFLEX 2 MG PO (02:02)
[2025-04-25] MEDS: CATAPRES 0.1 MG PO (02:02)
--- NOTE | 2025-04-25 04:30 | PTCARENOTE ---
Pt. assessment remains unchanged. AM labs drawn. Vital signs stable at this time.
[2025-04-25 05:05] LABS: ALT (SGPT) 57 U/L (0-50); AST (SGOT) 74 U/L (17-59); Albumin 2.8 g/dl (3.5-5.0); Alkaline Phosphatase 88 U/L (38-126); Blood Urea Nitrogen 16 mg/dl (9-20); Calcium 8.2 mg/dl (8.4-10.2); Carbon Dioxide 24 mmol/L (22-30); Chloride 118 mmol/L (98-107); Estimated Creatinine Clearance 117 ml/min; Glucose 93 mg/dl (70-99); Magnesium 2.0 mg/dl (1.6-2.3); Potassium 3.2 mmol/L (3.5-5.1); Sodium 143 mmol/L (135-145); Total Protein 6.7 g/dl (6.3-8.2); eGFR > 60.00
[2025-04-25 05:08] LABS: Hematocrit 32.7 % (39.0-52.0); Hemoglobin 11.6 g/dL (13.0-18.0); Mean Corp Hgb Conc. 35.5 g/dL (33.0-37.0); Mean Corpuscular Volume 93.4 fL (80.0-94.0); Platelet Count 124 10^3/uL (130-400); Red Cell Dist. Width 13.8 % (11.5-14.5)
[2025-04-25 05:13] LABS: C-Reactive Protein 22.20 mg/L (0.0-10.00)
[2025-04-25] MEDS: KCL 270 MEQ IV ×2 (05:42→09:54)
--- NOTE | 2025-04-25 06:49 | W.PN.INTV ---
Today's Communication / Plan
Recommendations
Replete potassium
Continue antibiotics for right lower lobe pneumonia
Continue with withdrawal protocol
DVT prophylaxis
GI prophylaxis
Okay for transfer out of ICU. Pulmonary will continue to follow
Assessment
-
59-year-old male with polysubstance abuse, daily fentanyl/tranq, daily alcohol/caffeine use, presents with withdrawal symptoms from [facility]
Acute withdrawal symptoms
Daily fentanyl, plus or minus xylazine
Urine tox screen positive for opiate, methadone, fentanyl, benzo
Multiple lower extremity needle garcia
Suspected right lower lobe pneumonia
Hypertension
Acute transaminitis
Tachycardia
Leukocytosis
Hypokalemia
Abnormal EKG, LVH, P pulmonale
Coffee ground emesis
Plan/recommendations
At this time, patient appears to be comfortable, improved from respiratory standpoint, less tachypneic, diaphoresis has resolved
Patient denies shortness of breath
Has been weaned off Precedex over the last 48 hours, remains on phenobarbital protocol
Per records, patient admits to daily fentanyl use, symptoms seem to start about 24 hours [facility] at [facility]
Tachycardia noted, with LVH and P pulmonale, seems improved
Presented with blood pressure 240/140, now improved
Chest x-ray with right lower lobe pneumonia which is new when compared to admission chest x-ray. Leukocytosis noted
Moving forward
Continue with withdrawal protocol
Microdosing buprenorphine, tizanidine, clonidine, oxycodone
Continue phenobarbital protocol given daily alcohol use.
Thiamine, folate
Abnormal EKG noted
Follow-up for now
No oxygen requirement, chest x-ray with right lower lobe pneumonia. There is cardiomegaly noted
Given coffee-ground emesis premonition, may be aspiration event
Repeat EKG today
Remains on ceftriaxone. Flagyl added by primary service.
Patient had coffee-ground emesis preadmission
Continue IV Protonix therapy
Advance diet as able
Replete electrolytes
Reviewed with critical care nursing
Reviewed with primary service
Okay for transfer out of ICU from critical care standpoint. Pulmonary will continue to follow briefly
Subjective Dataa
Subjective Data
Date of Service:
Date of Service: April 25, 2025
Subjective:
Overall, patient appears to be feeling improved. He is less short of breath. He still intermittently agitated but not requiring Precedex. He is hallucinating occasionally, still thinks he is in [facility]. Otherwise denies chest pain.
Denies shortness of breath.
Objective Data
Data Reviewed
Vital Signs / I&O / Oxygen:
Vital Signs
Temp Pulse Resp BP Pulse Ox
97.8 F 102 17 135/98 99
04/25/25 03:30 04/25/25 06:00 04/25/25 06:00 04/25/25 06:00 04/25/25 06:00
Intake and Output
04/23/25 04/24/25 04/25/25
06:59 06:59 06:59
Intake Total 3408.9 / 3508.9 4117.5 / 4117.5
Output Total 850 / 850 2400 / 2400 1400 / 1400
Balance -850 / -850 1008.9 / 1108.9 2717.5 / 2717.5
SaO2 99
Nasal Cannula flow liters per 1
minute
Physical Exam
General: Comfortable
HEENT: Normocephalic
Cardiovascular: S1-S2, Regular Rhythm (Tachycardic), Murmur (n) and Rub (n)
Respiratory: Wheeze (n), Crackles (n), Rhonchi (n), Non-Labored Respirations and Stridor (n)
GI: Soft, Non Distended and Non Tender
Neurology: Awake, Alert and Tremors (Absent)
Skin: Cyanosis (n), Jaundice (n) and Rash (n)
Labs/Micro/Reports
Lab Data
04/25/25 04:19
04/25/25 04:19
Microbiology
04/23/25 11:00 Blood/Venous Blood Culture - Preliminary
No Growth in 24 hours- Final report to follow
04/23/25 09:18 Blood/Venous Blood Culture - Preliminary
No Growth in 24 hours- Final report to follow
04/23/25 01:39 Nose MRSA Screen - Final
No Methicillin Resistant Staphylococcus aureus isolated.
--- NOTE | 2025-04-25 08:05 | W.PN.HOSP.TC ---
Today's Communication/Plan
-
Transfer to IMU, but otherwise continue current care.
Assessment / Plan
Assessment / Plan
HPI: 59-year-old male from [facility] brought to [facility] ED for evaluation of tremors and intractable nausea and vomiting. At time of admit, patient found to use Fentanyl use of 4-5 bags daily.
Initially unable to obtain any [facility] or [facility] as patient was not cooperative with assessment. He was tremulous and diaphoretic with tachycardia and hypertension.
A/P:
1. Withdraw symptoms 2/2 opiate use disorder +- Xylazine - improving
Complicated by SIRS POA likely due to withdrawal
Complicated by the reported 4-5 bag fentanyl use daily to [facility] at intake, stated last use in 2 days
Note that the tox screen was positive for opiate, methadone, fentanyl, benzo
s/p Precedex gtt,
Cont PRN IV Benadryl, Tizanidine PRN, Clonidine PRN,
On buprenorphine microdosing
Cont IVF NSS with K
Add extra K and mag as needed based on daily levels
SPL eval then advancement of diet
Stable and recovering
Ok to leave ICU level of care to IMU with ongoing Flatbed Owner Operator support
2. Transaminitis likely reactive , improving (142 --> 74)
Follow LFT
Final Check tomorrow if trend continues
3. SIRS POA likely due to withdrawal with Suspected reactive leucocytosis due to withdrawal - improving. (20 --> 15.0)
follow WBC, remain elevated at 15 today
Follow blood cultures x2, (no growth x 24h as of today)
Continue to cover with empiric Ceftriaxone/vanc while await blood cultures
CRP still elevated. check every other day
4. Acute hypoxic respiratory insufficiency with Suspected right lower lobe pneumonia - improving
Placed on 2L NC
Check repeat CXR next on 04/27
Cont ABx as stated above
5. Hypokalemia - continues
Complicated by Hypomagnesemia
replete lytes as needed daily
6. hypertensive urgency - resolved. Today 130s/90s
Complicated by Abnormal EKG, LVH, P pulmonale
Continue Clonidine PRN,
Continue Hydralazine PRN
7. H/O Coffee ground emesis - resolved
Continue PPI IV
Once on a regular po diet, switch to PO PPI
Code status: full code
DVT prophylaxis: heparin sq
DW Flatbed Owner Operator
total time 51 min
Anticipated Discharge: > 48 hours
Subjective/Interval History
-
Date of Service: April 25, 2025
No new complaints. Stable
Objective Data
-
Labs:
Laboratory Results
04/25/25
04:19
WBC 15.0 H
Hgb 11.6 L
Hct 32.7 L
Plt Count 124 L D
Sodium 143
Potassium 3.2 L
Chloride 118 H
Carbon Dioxide 24
BUN 16
Creatinine 0.5 L
Glucose 93
Calcium 8.2 L
Total Bilirubin 1.1
AST 74 H
ALT 57 H
Alkaline Phosphatase 88
Vital Signs:
Vital Signs
Temp Pulse Resp BP Pulse Ox
97.6 F 102 17 135/98 99
04/25/25 07:20 04/25/25 06:00 04/25/25 06:00 04/25/25 06:00 04/25/25 06:00
I&O
04/24/25 04/25/25 04/26/25
06:59 06:59 06:59
Intake Total 3408.9 / 3508.9 4117.5 / 4117.5
Output Total 2400 / 2400 1400 / 1400
Balance 1008.9 / 1108.9 2717.5 / 2717.5
Review of Systems
-
History Source: Patient
All other systems: Reviewed and negative
Physical Exam
-
General: Well Developed, Well Nourished, No Apparent Distress and Comfortable
HEENT: Normocephalic, Moist Mucous Membranes, Nose Appears Normal and Ears Appear Normal
Respiratory: Clear to Auscultation
Cardiac: Regular Rhythm and S1/S2
GI: Soft, Nontender and Nondistended
Musculoskeletal: No Clubbing, No Cyanosis and No Edema
Skin: Warm and Dry
Neuro: Awake and Alert
Psych: Calm
Data Reviewed
-
Labs: Labs Reviewed by me
[2025-04-25] MEDS: THIAMINE INJECTION 200 MG IV ×2 (08:54→18:14)
[2025-04-25] MEDS: NSS (PRESERVATIVE FREE) 10 ML IV ×2 (08:55→19:24)
[2025-04-25] MEDS: PROTONIX IV 40 MG IV ×2 (08:55→19:24)
[2025-04-25] MEDS: FLAGYL 500 MG 100 IV ×2 (08:57→18:13)
[2025-04-25] MEDS: HEPARIN 5000 UNITS SC ×2 (08:58→18:10)
[2025-04-25] MEDS: CATAPRES 0.2 MG PO ×3 (08:59→21:51)
[2025-04-25] MEDS: OXYCONTIN (CONTROLLED RELEASE) 40 MG PO (08:59)
[2025-04-25] MEDS: SUBUTEX 2 MG SL (08:59)
[2025-04-25] MEDS: STERILE WATER FOR INJECTION 10 ML IV (09:00)
[2025-04-25] MEDS: FOLVITE 1 MG PO (09:00)
[2025-04-25] MEDS: NSS with KCL 20 MEQ 1000 IV (10:01)
[2025-04-25] MEDS: SUBUTEX 4 MG SL ×3 (13:04→21:51)
[2025-04-25] MEDS: ROCEPHIN 1000 MG IV (13:49)
[2025-04-25] MEDS: FLUSH (NSS) 1 FLUSH IV (13:49)
--- NOTE | 2025-04-25 14:01 | PTCARENOTE ---
Assumed care at 07:00 . patient in bed. Aroused, oriented person and time, Disoriented to place. Denies pain.
Potassium replated per current order
[2025-04-25] MEDS: LUMINAL 64.8 MG PO ×2 (18:12→21:51)
[2025-04-25] MEDS: OXYCONTIN (CONTROLLED RELEASE) 20 MG PO (18:12)
[2025-04-25] MEDS: FLUSH (NSS) IV (18:20)
[2025-04-25] MEDS: NSS with KCL 20 MEQ IV (18:50)
--- NOTE | 2025-04-25 19:00 | PTCARENOTE ---
Patient AAAO x3 . Able to let his need know. Tolerating diet without nausea.
MSAS 6
[2025-04-25] MEDS: KCL 1010 MEQ IV (19:24)
--- NOTE | 2025-04-25 20:00 | PTCARENOTE ---
Received pt. at 1900. Pt. awake and alert. Mild hallucinations. Able to redirect patient. Denies pain/discomfort. Afebrile. Heart rhythm sinus. Blood pressure normotensive. PO diet, good appetite. Condom catheter in place. Voiding without issue.
Skin as documented. Discussed plan of care. Vital signs stable at this time.
[2025-04-26] VITALS (9 sets, daily range): BP systolic 108–150; BP diastolic 82–107; BMI 25.2
[2025-04-26] MEDS: HEPARIN 5000 UNITS SC ×4 (00:01→23:39)
[2025-04-26] MEDS: FLAGYL 500 MG 100 IV ×4 (00:01→23:39)
[2025-04-26] MEDS: THIAMINE INJECTION 200 MG IV (00:01)
--- NOTE | 2025-04-26 04:00 | PTCARENOTE ---
Pt. assessment remains unchanged. AM labs drawn. Vital signs stable at this time.
[2025-04-26 04:08] LABS: Hematocrit 33.2 % (39.0-52.0); Hemoglobin 11.5 g/dL (13.0-18.0); Mean Corp Hgb Conc. 34.6 g/dL (33.0-37.0); Mean Corpuscular Volume 94.6 fL (80.0-94.0); Platelet Count 109 10^3/uL (130-400); Red Cell Dist. Width 13.8 % (11.5-14.5)
[2025-04-26 04:22] LABS: ALT (SGPT) 60 U/L (0-50); AST (SGOT) 70 U/L (17-59); Albumin 2.7 g/dl (3.5-5.0); Alkaline Phosphatase 95 U/L (38-126); Blood Urea Nitrogen 13 mg/dl (9-20); Calcium 8.5 mg/dl (8.4-10.2); Carbon Dioxide 23 mmol/L (22-30); Chloride 120 mmol/L (98-107); Estimated Creatinine Clearance 117 ml/min; Glucose 86 mg/dl (70-99); Magnesium 2.0 mg/dl (1.6-2.3); Potassium 3.6 mmol/L (3.5-5.1); Sodium 145 mmol/L (135-145); Total Protein 6.6 g/dl (6.3-8.2); eGFR > 60.00
[2025-04-26 04:24] LABS: C-Reactive Protein 30.00 mg/L (0.0-10.00)
--- NOTE | 2025-04-26 06:59 | W.PN.INTV ---
Addendum entered and electronically signed by Earlene Mora MD 04/26/25 09:59:
Reviewed EKG. No acute findings
Nonspecific T wave changes
We will sign off. Please call with questions
Original Note:
Today's Communication / Plan
Recommendations
Will obtain EKG today
Incentive spirometry
Continue antibiotics
Continue withdrawal protocol, phenobarbital
We will sign off. Please call with questions
Assessment
-
59-year-old male with polysubstance abuse, daily fentanyl/tranq, daily alcohol/caffeine use, presents with withdrawal symptoms from [facility]
Acute withdrawal symptoms
Daily fentanyl, plus or minus xylazine
Urine tox screen positive for opiate, methadone, fentanyl, benzo
Multiple lower extremity needle garcia
Suspected right lower lobe pneumonia
Hypertension
Acute transaminitis
Tachycardia
Leukocytosis
Hypokalemia
Abnormal EKG, LVH, P pulmonale
Coffee ground emesis
Plan/recommendations
At this time, patient appears to be comfortable, improved from respiratory standpoint, less tachypneic, diaphoresis has resolved
still remains intermittently confused, hallucinating
Has been weaned off Precedex over the last 72 hours, remains on phenobarbital protocol
Per records, patient admits to daily fentanyl use, symptoms seem to start about 24 hours after being at correctional facility
Tachycardia noted, with LVH and P pulmonale, seems improved
Presented with blood pressure 240/140, now improved
Chest x-ray with right lower lobe pneumonia which is new when compared to admission chest x-ray. Leukocytosis noted
Moving forward
Continue with withdrawal protocol
Microdosing buprenorphine, tizanidine, clonidine, oxycodone
Continue phenobarbital protocol given daily alcohol use.
Thiamine, folate
Abnormal EKG noted
Follow-up for now
No oxygen requirement, chest x-ray with right lower lobe pneumonia. There is cardiomegaly noted
Given coffee-ground emesis premonition, may be aspiration event
Repeat EKG today, did not get yesterday
Remains on ceftriaxone. Flagyl added by primary service.
Patient had coffee-ground emesis preadmission
Continue IV Protonix therapy
Advance diet as able
Replete electrolytes
Reviewed with critical care nursing
Reviewed with primary service
We will sign off. Please call with questions
Subjective Dataa
Subjective Data
Date of Service:
Date of Service: April 26, 2025
Subjective:
Patient continues to be confused at times, still not sure where he is. Today he is admitting to shortness of breath but appears to be comfortable. Denies nausea, chest pain. Presently on room air
Objective Data
Data Reviewed
Vital Signs / I&O / Oxygen:
Vital Signs
Temp Pulse Resp BP Pulse Ox
98 F 94 23 150/107 99
04/26/25 03:25 04/26/25 04:00 04/26/25 04:00 04/26/25 04:00 04/26/25 04:00
Intake and Output
04/24/25 04/25/25 04/26/25
06:59 06:59 06:59
Intake Total 3408.9 / 3508.9 4117.5 / 4117.5 3399 / 3399
Output Total 2400 / 2400 1400 / 1400 1000 / 1000
Balance 1008.9 / 1108.9 2717.5 / 2717.5 2399 / 2399
SaO2 99
Nasal Cannula flow liters per 1
minute
Physical Exam
General: Comfortable
HEENT: Normocephalic
Cardiovascular: S1-S2, Regular Rhythm (Tachycardic), Murmur (n) and Rub (n)
Respiratory: Wheeze (n), Crackles (n), Rhonchi (n), Non-Labored Respirations and Stridor (n)
GI: Soft, Non Distended and Non Tender
Neurology: Awake, Alert, Oriented (Remains disoriented) and Tremors (Absent)
Skin: Cyanosis (n), Jaundice (n), Rash (n) and Other (Legs are cuffed to the bed)
Labs/Micro/Reports
Lab Data
04/26/25 03:48
04/26/25 03:48
Microbiology
04/23/25 11:00 Blood/Venous Blood Culture - Preliminary
No Growth in 48 hours- Final report to follow
04/23/25 09:18 Blood/Venous Blood Culture - Preliminary
No Growth in 48 hours- Final report to follow
04/23/25 01:39 Nose MRSA Screen - Final
No Methicillin Resistant Staphylococcus aureus isolated.
--- NOTE | 2025-04-26 08:18 | W.PN.HOSP.TC ---
Today's Communication/Plan
-
Continue to taper off sedation per protocol as tolerated.
Assessment / Plan
Assessment / Plan
HPI: 59-year-old male from [facility] brought to [facility] ED for evaluation of tremors and intractable nausea and vomiting. At time of admit, patient found to use Fentanyl use of 4-5 bags daily.
Initially unable to obtain any [facility] or [facility] as patient was not cooperative with assessment. He was tremulous and diaphoretic with tachycardia and hypertension.
A/P:
1. Withdraw symptoms 2/2 opiate use disorder +- Xylazine - improving
Complicated by SIRS POA likely due to withdrawal
Complicated by the reported 4-5 bag fentanyl use daily to [facility] at intake, stated last use in 2 days
Note that the tox screen was positive for opiate, methadone, fentanyl, benzo
s/p Precedex gtt,
Cont PRN IV Benadryl, Tizanidine PRN, Clonidine PRN,
On buprenorphine microdosing
Continue phenobarb taper
Cont IVF NSS with K
Add extra K and mag as needed based on daily levels
SPL eval then advancement of diet
Stable and recovering
Now IMU status
2. Transaminitis likely reactive , improving (142 --> 74 --> 70)
Follow LFT assisted
Likely from alcohol, but given risk factors, will check for viral hepatitis
3. SIRS POA likely due to withdrawal with Suspected reactive leucocytosis due to withdrawal - improving. (20 --> 15.0)
WBC no longer elevated
Follow blood cultures x2, (no growth x 48h as of today)
Continue to cover with empiric Ceftriaxone/vanc while await blood cultures
CRP still elevated. check every other day
4. Acute hypoxic respiratory insufficiency with Suspected right lower lobe pneumonia - improving
Placed on 2L NC
Check repeat CXR next on 04/27
Cont ABx as stated above
5. Hypokalemia - continues to need replacement
Complicated by Hypomagnesemia
replete lytes as needed daily
6. hypertensive urgency - resolved. Today 130s/90s
Complicated by Abnormal EKG, LVH, P pulmonale
Continue Clonidine PRN,
Continue Hydralazine PRN
7. H/O Coffee ground emesis - resolved
Continue PPI IV
Once on a regular po diet, switch to PO PPI
Code status: full code
DVT prophylaxis: heparin sq
DW Piggyback Clerk
total time 51 min
Anticipated Discharge: > 48 hours
Subjective/Interval History
-
Date of Service: April 26, 2025
In and out of clarity, but moments of clarity are getting longer.
Objective Data
-
Labs:
Laboratory Results
04/26/25
03:48
WBC 6.7
Hgb 11.5 L
Hct 33.2 L
Plt Count 109 L
Sodium 145
Potassium 3.6
Chloride 120 H
Carbon Dioxide 23
BUN 13
Creatinine 0.5 L
Glucose 86
Calcium 8.5
Total Bilirubin 0.9
AST 70 H
ALT 60 H
Alkaline Phosphatase 95
Vital Signs:
Vital Signs
Temp Pulse Resp BP Pulse Ox
98 F 94 23 150/107 99
04/26/25 03:25 04/26/25 04:00 04/26/25 04:00 04/26/25 04:00 04/26/25 04:00
I&O
04/25/25 04/26/25 04/27/25
06:59 06:59 06:59
Intake Total 4117.5 / 4117.5 3399 / 3399
Output Total 1400 / 1400 1000 / 1000
Balance 2717.5 / 2717.5 2399 / 2399
Review of Systems
-
Unable to obtain full review of systems at this time due to: Acuity
History Source: Patient
All other systems: Reviewed and negative
Physical Exam
-
General: Well Developed, Well Nourished, No Apparent Distress and Comfortable
HEENT: Normocephalic, Atraumatic, Nose Appears Normal and Ears Appear Normal
Respiratory: Clear to Auscultation
Cardiac: Regular Rhythm and S1/S2
GI: Soft, Nontender and Nondistended
Musculoskeletal: No Clubbing, No Cyanosis and No Edema
Skin: Warm and Dry
Neuro: Awake; Negative Alert, Oriented or AO x 3
Psych: Calm
Data Reviewed
-
Labs: Labs Reviewed by me
[2025-04-26] MEDS: ROCEPHIN 1000 MG IV (09:12)
[2025-04-26] MEDS: PROTONIX IV 40 MG IV ×2 (09:12→19:59)
[2025-04-26] MEDS: STERILE WATER FOR INJECTION 10 ML IV (09:13)
[2025-04-26] MEDS: SUBUTEX 4 MG SL (09:13)
[2025-04-26] MEDS: VITAMIN B1 100 MG PO ×2 (09:14→19:59)
[2025-04-26] MEDS: CATAPRES 0.2 MG PO ×3 (09:14→21:29)
[2025-04-26] MEDS: LUMINAL 64.8 MG PO ×3 (09:14→21:29)
[2025-04-26] MEDS: OXYCONTIN (CONTROLLED RELEASE) 20 MG PO ×2 (09:14)
[2025-04-26] MEDS: FLUSH (NSS) 1 FLUSH IV (09:15)
[2025-04-26] MEDS: NSS (PRESERVATIVE FREE) 10 ML IV ×2 (09:24→19:59)
[2025-04-26] MEDS: FOLVITE 1 MG PO (09:25)
[2025-04-26] MEDS: NSS with KCL 20 MEQ 1000 IV (11:18)
[2025-04-26] MEDS: FLUSH (NSS) IV (14:00)
--- NOTE | 2025-04-26 14:27 | PTCARENOTE ---
Transfer:
Patient transfer to room 422; Transfer via bed.
- At time of transfer patient AAO x3 [facility] [employer] officers at the bedside. MSAS Score 5;
- Normal Sinus Rhythm 80's Vital Signs Stable No edema
- Abdomen soft non-distended
-This am patient incontinent of urine. Condom Cath in place
- Tolerating current diet wdith no difficulties no signs of aspiration
--- NOTE | 2025-04-26 14:30 | PTCARENOTE ---
Pt transferred from ICU. Pt AAOX3, able to make needs known, correctional officers at bedside, MSAS. Pt oriented to unit, call lora within reach. Will continue with current plan.
[2025-04-26] MEDS: KCL IV (15:30)
[2025-04-26] MEDS: SUBUTEX 8 MG SL (20:05)
[2025-04-27] MEDS: NSS with KCL 20 MEQ 1000 IV (01:51)
[2025-04-27 03:03] VITALS: BP 148/92
[2025-04-27 04:41] LABS: Hematocrit 34.5 % (39.0-52.0); Hemoglobin 11.9 g/dL (13.0-18.0); Mean Corp Hgb Conc. 34.5 g/dL (33.0-37.0); Mean Corpuscular Volume 95.3 fL (80.0-94.0); Platelet Count 128 10^3/uL (130-400); Red Cell Dist. Width 14.0 % (11.5-14.5)
[2025-04-27 04:57] LABS: ALT (SGPT) 58 U/L (0-50); AST (SGOT) 68 U/L (17-59); Albumin 2.5 g/dl (3.5-5.0); Alkaline Phosphatase 103 U/L (38-126); Blood Urea Nitrogen 11 mg/dl (9-20); Calcium 8.2 mg/dl (8.4-10.2); Carbon Dioxide 22 mmol/L (22-30); Chloride 118 mmol/L (98-107); Estimated Creatinine Clearance 117 ml/min; Glucose 83 mg/dl (70-99); Potassium 3.9 mmol/L (3.5-5.1); Sodium 142 mmol/L (135-145); Total Protein 6.4 g/dl (6.3-8.2); eGFR > 60.00
[2025-04-27 05:32] LABS: Hepatitis B Surface Antigen Negative (Negative)
[2025-04-27 05:49] LABS: Hepatitis C Antibody Reactive (Negative)
[2025-04-27 06:00] VITALS: BMI 27.3
[2025-04-27] MEDS: LUMINAL 64.8 MG PO (07:37)
[2025-04-27] MEDS: FOLVITE 1 MG PO (07:38)
[2025-04-27] MEDS: CATAPRES 0.2 MG PO ×3 (07:38→21:39)
[2025-04-27] MEDS: FLAGYL 500 MG PO ×2 (07:40→16:21)
[2025-04-27] MEDS: SUBUTEX 8 MG SL (07:41)
[2025-04-27 07:42] VITALS: BP 117/79
[2025-04-27] MEDS: FLUSH (NSS) IV ×2 (07:42→10:36)
[2025-04-27] MEDS: HEPARIN 5000 UNITS SC ×2 (07:42→16:19)
[2025-04-27] MEDS: VITAMIN B1 100 MG PO ×2 (07:42→20:27)
[2025-04-27] MEDS: PROTONIX 40 MG PO ×2 (07:46→20:27)
[2025-04-27] MEDS: ROCEPHIN 1000 MG IV (09:07)
[2025-04-27] MEDS: STERILE WATER FOR INJECTION 10 ML IV (09:07)
[2025-04-27 10:53] VITALS: BP 159/96
--- NOTE | 2025-04-27 13:02 | W.PN.HOSP.TC ---
Today's Communication/Plan
-
stop fluids
Opiate withdrawal, phenobarb and subutex
Assessment / Plan
Assessment / Plan
HPI: 59-year-old male from [facility] brought to [facility] ED for evaluation of tremors and intractable nausea and vomiting. At time of admit, patient found to use Fentanyl use of 4-5 bags daily.
Initially unable to obtain any HPI or [facility] as patient was not cooperative with assessment. He was tremulous and diaphoretic with tachycardia and hypertension.
A/P:
#Opiate +/- Xylazine Withdrawal
#SIRS 2/2 to non infectious etiology as stated above
-reported 4-5 bag fentanyl use daily to [facility] at intake, stated last use in 2 days prior to admit
-Note that the tox screen was positive for opiate, methadone, fentanyl, benzo
-s/p Precedex gtt,
-Cont PRN IV Benadryl, Tizanidine PRN, Clonidine PRN,
-On buprenorphine microdosing
-Continue phenobarb taper
#Transaminitis likely reactive with polysusbtance abuse, mild
- improving (142 --> 74 --> 70)
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
-Hep C antibody reactive, never treated - F/u outpatient
-Likely from alcohol, but given risk factors, will check for viral hepatitis
#Acute hypoxic respiratory failure
-Suspected large aspiration pneumonia -improving
-on RA
-Cont abx
#Hypokalemia
-monitor and replete
#hypertensive urgency - resolved.
-Continue Clonidine PRN,
-Continue Hydralazine PRN
#H/O Coffee ground emesis - resolved
Continue PPI IV
Code status: full code
DVT prophylaxis: heparin sq
Anticipated Discharge: 24 - 48 hours
Subjective/Interval History
-
Date of Service: April 27, 2025
no acute events
Objective Data
-
Labs:
Laboratory Results
04/27/25
04:20
WBC 6.4
Hgb 11.9 L
Hct 34.5 L
Plt Count 128 L
Sodium 142
Potassium 3.9
Chloride 118 H
Carbon Dioxide 22
BUN 11
Creatinine 0.6 L
Glucose 83
Calcium 8.2 L
Total Bilirubin 0.8
AST 68 H
ALT 58 H
Alkaline Phosphatase 103
Vital Signs:
Vital Signs
Temp Pulse Resp BP Pulse Ox
98.1 F 102 20 159/96 99
04/27/25 10:53 04/27/25 10:53 04/27/25 10:53 04/27/25 10:53 04/27/25 10:53
I&O
04/26/25 04/27/25 04/28/25
06:59 06:59 06:59
Intake Total 3399 / 3474 1815 / 1815
Output Total 1000 / 1000 500 / 500 400 / 400
Balance 2399 / 2474 1315 / 1315 -400 / -400
Review of Systems
-
History Source: Patient
All other systems: Not reviewed unless documented
Physical Exam
-
General: Well Developed, Well Nourished, No Apparent Distress and Comfortable
HEENT: Normocephalic, Atraumatic, Nose Appears Normal and Ears Appear Normal
Respiratory: Clear to Auscultation
Cardiac: Regular Rhythm and S1/S2
GI: Soft, Nontender and Nondistended
Musculoskeletal: No Clubbing, No Cyanosis and No Edema
Skin: Warm and Dry
Neuro: Awake; Negative Alert, Oriented or AO x 3
Psych: Calm
Data Reviewed
-
Labs: Labs Reviewed by me
--- NOTE | 2025-04-27 13:59 | CM ---
Patient remains in need of acute care services.
Plan: Case management will continue to follow and assist with discharge planning. Back to [facility] when stable.
[2025-04-27 14:52] VITALS: BP 150/96
[2025-04-27] MEDS: LUMINAL 32.4 MG PO ×2 (16:21→21:39)
[2025-04-27 19:00] VITALS: BP 167/96
[2025-04-27] MEDS: SUBUTEX 2 MG SL (20:27)
[2025-04-27] MEDS: COMPAZINE 10 MG IV (21:45)
[2025-04-27 23:00] VITALS: BP 161/96
--- NOTE | 2025-04-27 23:00 | PTCARENOTE ---
Patient is oriented and compliant, respectful and cooperative. Patient is shackled to bed by RLE. Two guards are present at bedside. Patient required additional PRN medication to help with anxiety/general discomfort. RN gave report to Elisa HURD at
correctional facility at 2128 pm.
[2025-04-28] MEDS: HEPARIN 5000 UNITS SC ×4 (01:44→23:42)
[2025-04-28] MEDS: FLAGYL 500 MG PO ×4 (01:45→23:42)
[2025-04-28 03:00] VITALS: BP 166/94
[2025-04-28] MEDS: SUBUTEX 2 MG SL (03:37)
[2025-04-28 05:30] LABS: Hematocrit 34.4 % (39.0-52.0); Hemoglobin 12.0 g/dL (13.0-18.0); Mean Corp Hgb Conc. 34.9 g/dL (33.0-37.0); Mean Corpuscular Volume 93.7 fL (80.0-94.0); Platelet Count 117 10^3/uL (130-400); Red Cell Dist. Width 13.6 % (11.5-14.5)
[2025-04-28 06:08] LABS: ALT (SGPT) 53 U/L (0-50); AST (SGOT) 80 U/L (17-59); Albumin 2.8 g/dl (3.5-5.0); Alkaline Phosphatase 105 U/L (38-126); Blood Urea Nitrogen 10 mg/dl (9-20); Calcium 8.4 mg/dl (8.4-10.2); Carbon Dioxide 24 mmol/L (22-30); Chloride 112 mmol/L (98-107); Estimated Creatinine Clearance 117 ml/min; Glucose 85 mg/dl (70-99); Magnesium 1.6 mg/dl (1.6-2.3); Potassium 3.7 mmol/L (3.5-5.1); Sodium 137 mmol/L (135-145); Total Protein 6.8 g/dl (6.3-8.2); eGFR > 60.00
[2025-04-28 07:01] VITALS: BP 166/110
[2025-04-28] MEDS: FOLVITE 1 MG PO (08:10)
[2025-04-28] MEDS: CATAPRES 0.2 MG PO ×3 (08:10→20:55)
[2025-04-28] MEDS: PROTONIX 40 MG PO ×2 (08:10→20:55)
[2025-04-28] MEDS: LUMINAL 32.4 MG PO ×3 (08:10→20:56)
[2025-04-28] MEDS: SUBUTEX 16 MG SL (08:12)
[2025-04-28] MEDS: VITAMIN B1 100 MG PO ×2 (08:12→20:55)
[2025-04-28] MEDS: FLUSH (NSS) 1 FLUSH IV (08:13)
[2025-04-28] MEDS: ROCEPHIN 1000 MG IV (09:14)
[2025-04-28] MEDS: STERILE WATER FOR INJECTION 10 ML IV (09:15)
[2025-04-28 11:25] VITALS: BP 147/81
--- NOTE | 2025-04-28 11:58 | CM ---
CM reviewed chart, guards present in room. Plan remains return to [facility] when stable.
Plan; return [facility]
Report: [phone]
[2025-04-28] MEDS: FLUSH (NSS) IV (12:27)
--- NOTE | 2025-04-28 13:05 | W.PN.HOSP.TC ---
Today's Communication/Plan
-
Opiate withdrawal, phenobarb and subutex
Assessment / Plan
Assessment / Plan
HPI: 59-year-old male from [facility] brought to [facility] ED for evaluation of tremors and intractable nausea and vomiting. At time of admit, patient found to use Fentanyl use of 4-5 bags daily.
Initially unable to obtain any HPI or [facility] as patient was not cooperative with assessment. He was tremulous and diaphoretic with tachycardia and hypertension.
A/P:
#Opiate +/- Xylazine Withdrawal
#SIRS 2/2 to non infectious etiology as stated above
-reported 4-5 bag fentanyl use daily to [facility] at intake, stated last use in 2 days prior to admit
-Note that the tox screen was positive for opiate, methadone, fentanyl, benzo
-s/p Precedex gtt,
-Cont PRN IV Benadryl, Tizanidine PRN, Clonidine PRN,
-On buprenorphine microdosing
-Continue phenobarb taper
#Transaminitis likely reactive with polysusbtance abuse, mild
- improving (142 --> 74 --> 70)
-[facility]
-Hep C antibody reactive, never treated - F/u outpatient
-Likely from alcohol, but given risk factors, will check for viral hepatitis
#Acute hypoxic respiratory failure
-Suspected large aspiration pneumonia -improving
-on RA
-Cont abx
#Hypokalemia
-monitor and replete
#hypertensive urgency - resolved.
-Continue Clonidine PRN,
-Continue Hydralazine PRN
#H/O Coffee ground emesis - resolved
Continue PPI IV
Code status: full code
DVT prophylaxis: heparin sq
Anticipated Discharge: Within 24 hours
Subjective/Interval History
-
Date of Service: April 28, 2025
no acute events overnight
Objective Data
-
Labs:
Laboratory Results
04/28/25
05:16
WBC 6.9
Hgb 12.0 L
Hct 34.4 L
Plt Count 117 L
Sodium 137
Potassium 3.7
Chloride 112 H
Carbon Dioxide 24
BUN 10
Creatinine 0.5 L
Glucose 85
Calcium 8.4
Total Bilirubin 1.1
AST 80 H
ALT 53 H
Alkaline Phosphatase 105
Vital Signs:
Vital Signs
Temp Pulse Resp BP Pulse Ox
97.7 F 97 18 147/81 98
04/28/25 11:25 04/28/25 11:25 04/28/25 11:25 04/28/25 11:25 04/28/25 11:25
I&O
04/27/25 04/28/25 04/29/25
06:59 06:59 06:59
Intake Total 1815 / 1815 240 / 240
Output Total 500 / 500 1300 / 1300
Balance 1315 / 1315 -1060 / -1060
Review of Systems
-
History Source: Patient
All other systems: Not reviewed unless documented
Data Reviewed
-
Diagnostic Radiology: Report Reviewed by me
Labs: Labs Reviewed by me
[2025-04-28 16:15] VITALS: BP 138/74
[2025-04-28 19:45] VITALS: BP 160/78
[2025-04-28] MEDS: ZOFRAN 4 MG IV (22:22)
[2025-04-28 23:00] VITALS: BP 123/78
[2025-04-29 03:00] VITALS: BP 143/99
[2025-04-29 06:00] LABS: Hematocrit 33.6 % (39.0-52.0); Hemoglobin 11.7 g/dL (13.0-18.0); Mean Corp Hgb Conc. 34.8 g/dL (33.0-37.0); Mean Corpuscular Volume 93.9 fL (80.0-94.0); Platelet Count 110 10^3/uL (130-400); Red Cell Dist. Width 13.8 % (11.5-14.5)
[2025-04-29 06:25] LABS: ALT (SGPT) 52 U/L (0-50); AST (SGOT) 70 U/L (17-59); Albumin 2.8 g/dl (3.5-5.0); Alkaline Phosphatase 124 U/L (38-126); Blood Urea Nitrogen 8 mg/dl (9-20); Calcium 8.4 mg/dl (8.4-10.2); Carbon Dioxide 26 mmol/L (22-30); Chloride 108 mmol/L (98-107); Estimated Creatinine Clearance 117 ml/min; Glucose 95 mg/dl (70-99); Magnesium 1.6 mg/dl (1.6-2.3); Potassium 3.5 mmol/L (3.5-5.1); Sodium 136 mmol/L (135-145); Total Protein 6.6 g/dl (6.3-8.2); eGFR > 60.00
[2025-04-29] MEDS: SUBUTEX 16 MG SL (08:00)
[2025-04-29] MEDS: FLAGYL 500 MG PO ×2 (08:01→16:27)
[2025-04-29] MEDS: FOLVITE 1 MG PO (08:01)
[2025-04-29] MEDS: HEPARIN 5000 UNITS SC (08:01)
[2025-04-29] MEDS: CATAPRES 0.2 MG PO ×2 (08:01→16:27)
[2025-04-29] MEDS: PROTONIX 40 MG PO (08:01)
[2025-04-29] MEDS: VITAMIN B1 100 MG PO (08:02)
[2025-04-29] MEDS: LUMINAL 32.4 MG PO (08:03)
[2025-04-29 08:14] VITALS: BP 150/102
[2025-04-29] MEDS: ROCEPHIN 1000 MG IV (10:27)
[2025-04-29] MEDS: FLUSH (NSS) IV ×2 (10:27→11:02)
[2025-04-29] MEDS: STERILE WATER FOR INJECTION 10 ML IV (10:27)
--- NOTE | 2025-04-29 11:07 | W.PN.HOSP.TC ---
Addendum entered and electronically signed by Nathaniel Argueta MD 04/29/25 13:39:
[id number]
Original Note:
Today's Communication/Plan
-
complete abx course
On buprenorphine microdosing, taper as needed outpatient
PPI bid
GI f/u outpt
PCP within 1 week
Chest imaging as per PCP outpt
Clonidine
F/u LFTs outpatient, Hep C f/u - GI
Assessment / Plan
Assessment / Plan
HPI: 59-year-old male from [facility] brought to [facility] ED for evaluation of tremors and intractable nausea and vomiting. At time of admit, patient found to use Fentanyl use of 4-5 bags daily.
Initially unable to obtain any HPI or [facility] as patient was not cooperative with assessment. He was tremulous and diaphoretic with tachycardia and hypertension.
A/P:
#Opiate +/- Xylazine Withdrawal
#SIRS 2/2 to non infectious etiology as stated above
-reported 4-5 bag fentanyl use daily to [facility] at intake, stated last use in 2 days prior to admit
-Note that the tox screen was positive for opiate, methadone, fentanyl, benzo
-s/p Precedex gtt,
-Cont PRN IV Benadryl, Tizanidine PRN, Clonidine PRN,�not needed inpatient prior to discharge, can discontinue on discharge
-On buprenorphine microdosing, taper as needed outpatient
- Completed phenobarb taper
#Transaminitis likely reactive with polysusbtance abuse, mild
- improving (142 --> 74 --> 70)
-Follow LFT [facility]ffer
-Hep C antibody reactive, never treated - F/u outpatient
-Likely from alcohol, but given risk factors
-F/u LFTs outpatient
#Acute hypoxic respiratory failure
-Suspected large aspiration pneumonia -improving
-on RA
-Completed 7 days ceftriaxone; complete 5 day flagyl po
#Hypokalemia
-monitor and replete
#hypertensive urgency - resolved.
-Continue Clonidine
#H/O Coffee ground emesis - resolved
Continue PPI
-GI f/u outpatient
-hgb remains stable
Code status: full code
DVT prophylaxis: heparin sq
More than 30 minutes spent in discharge including
Final examination of the patient
Summarizing hospital stay
Instructions for continuing care to all relevant caregivers
Preparation of discharge records, prescriptions, and referral forms
Total time spent (in minutes): 36
Anticipated Discharge: Today
Subjective/Interval History
-
Date of Service: April 29, 2025
No acute events, stable hemodynamically
Objective Data
-
Labs:
Laboratory Results
04/29/25
05:37
WBC 8.0
Hgb 11.7 L
Hct 33.6 L
Plt Count 110 L
Sodium 136
Potassium 3.5
Chloride 108 H
Carbon Dioxide 26
BUN 8 L
Creatinine 0.6 L
Glucose 95
Calcium 8.4
Total Bilirubin 0.8
AST 70 H
ALT 52 H
Alkaline Phosphatase 124
Vital Signs:
Vital Signs
Temp Pulse Resp BP Pulse Ox
98.4 F 92 18 150/102 92
04/29/25 08:14 04/29/25 08:14 04/29/25 08:14 04/29/25 08:14 04/29/25 08:14
I&O
04/28/25 04/29/25 04/30/25
06:59 06:59 06:59
Intake Total 240 / 240 960 / 960
Output Total 1300 / 1300 1700 / 1700
Balance -1060 / -1060 -740 / -740
Review of Systems
-
History Source: Patient
All other systems: Not reviewed unless documented
Physical Exam
-
General: Well Developed, Well Nourished, No Apparent Distress and Comfortable
HEENT: Normocephalic, Atraumatic, Nose Appears Normal and Ears Appear Normal
Respiratory: Clear to Auscultation
Cardiac: Regular Rhythm and S1/S2
GI: Soft, Nontender and Nondistended
Musculoskeletal: No Clubbing, No Cyanosis and No Edema
Skin: Warm and Dry
Neuro: Awake; Negative Alert, Oriented or AO x 3
Psych: Calm
Data Reviewed
-
Diagnostic Radiology: Report Reviewed by me
Labs: Labs Reviewed by me
--- NOTE | 2025-04-29 11:11 | W.DS.TRANS ---
DC Summary - Sound Effects Manager
-
Discharge Instructions:
Discharge Diagnosis/Procedures #Opiate +/- Xylazine Withdrawal
Diet Low Cholesterol,Low Fat
Activity As tolerated
Blood Work cbc and cmp in 5-7 days with PCP
Hep C antibody reactive, never treated - F/u
outpatient
Chest imaging in 4-6 weeks - assess improvement
in RLL pneumonia
Instructions:
Stand-Alone Forms:
Changes to Home Medications: Yes
Discharge Medications:
DC Medications w/original date entered in [employer]
folic acid 1 mg tablet 1 mg PO DAILY Supplement 04/22/25
magnesium oxide 400 mg PO DAILY Supplement 04/22/25
multivitamin 1 tab PO DAILY Supplement 04/22/25
ondansetron HCl 4 mg tablet 4 mg PO BIDPRN PRN nausea/vomiting 04/22/25
thiamine HCl (vitamin B1) 100 mg tablet 100 mg PO DAILY Supplement 04/22/25
buprenorphine HCl 8 mg sublingual tablet 16 mg (2 x 8 mg) sublingual DAILY@0800 #0 tabs 04/29/25
clonidine HCl 0.2 mg tablet 0.2 mg PO TID #0 tabs 04/29/25
metronidazole 500 mg tablet 500 mg PO Q8 3 days #9 tabs 04/29/25
naloxone 0.4 mg/mL injection solution 0.4 mg IV Q5MPRN PRN RR </= 8 breaths/min #0 mL 04/29/25
pantoprazole 40 mg tablet,delayed release 40 mg PO BID #0 tabs 04/29/25
Home Medication Changes
buprenorphine HCl 8 mg sublingual tablet 16 mg (2 x 8 mg) sublingual DAILY@0800 #0 tabs 04/29/25
clonidine HCl 0.2 mg tablet 0.2 mg PO TID #0 tabs 04/29/25
metronidazole 500 mg tablet 500 mg PO Q8 3 days #9 tabs 04/29/25
naloxone 0.4 mg/mL injection solution 0.4 mg IV Q5MPRN PRN RR </= 8 breaths/min #0 mL 04/29/25
pantoprazole 40 mg tablet,delayed release 40 mg PO BID #0 tabs 04/29/25
Pending Results: No
--- NOTE | 2025-04-29 12:28 | CM ---
CM reviewed chart, reviewed with Nurse, patient for discharge today, plan return to [facility]. CM will continue to follow for all discharge planning needs.
Plan; return [facility]
Report: [phone]
[2025-04-29] MEDS: SUBUTEX 2 MG SL (13:13)
[2025-04-29] MEDS: HEPARIN SC (16:27)
[2025-04-29 16:35] VITALS: BP 150/90
== END 2025-04-29 17:27 | DRG 896 ==
LOC: 4 WEST ACU 20:28
PROVIDERS: Internal Medicine; Nurse Practitioner Family; ADMITTING PHYSICIAN Internal Medicine; ATTENDING PHYSICIAN Internal Medicine; EMERGENCY PHYSICIAN Emergency Medicine; OTHER PHYSICIAN Internal Medicine Critical Care Medicine
DX: F19.139 Other psychoactive substance abuse with withdrawal, unspecified (principal); J18.9 Pneumonia, unspecified organism; J96.01 Acute respiratory failure with hypoxia; J69.0 Pneumonitis due to inhalation of food and vomit; R65.10 Systemic inflammatory response syndrome (SIRS) of non-infectious origin without acute organ dysfunction; F11.13 Opioid abuse with withdrawal; R11.2 Nausea with vomiting, unspecified; R61 Generalized hyperhidrosis; E87.6 Hypokalemia; D72.829 Elevated white blood cell count, unspecified; I16.0 Hypertensive urgency; R74.01 Elevation of levels of liver transaminase levels; E83.42 Hypomagnesemia; I95.9 Hypotension, unspecified
CPT/HCPCS: 71045; 80048; 80053; 80306; 80307; 81003; 81015; 82962; 83690; 83735; 84100; 84132; 85025; 85027; 85610; 85730; 86140; 86705; 86706; 86709; 86803; 87040; 87070; 87340; 92526; 92610; 93005; 96361; 96374; 96375; 99291

== ENCOUNTER 2025-05-16 10:16 | Emergency (ER) | payer OTHER, SELFPAY ==
[2025-05-16 10:20] VITALS: BP 123/91
--- NOTE | 2025-05-16 10:27 | ED.GENMED ---
History of Present Illness
General
Chief Complaint: Musculo-Skeletal Complaint
Source: patient
Exam Limitations: none
Time Seen by Provider: 05/16/25 10:19
Nursing documentation reviewed up to this point in time: agreed with
History of Present Illness
History of Present Illness:
Patient is a 59-year-old male from [facility] presents to the ER for evaluation. PT with history of multiple substance abuse, opiate abuse presents to the ED c/o of chest pain constant for past several days. Pt reports pain
is in the center of his chest . 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 He reports he has discomfort with touching the area twisting turning and moving his arms up. He denies
any injury. He denies any shortness of breath.
He does report he does report he has a history of cardiac stents(done several years ago at [place]).
Phy Exam
General Physical Exam
General Presentation: no apparent distress
General age: appears stated age
General Skin: warm and dry
General Habitus: normal
General Mental: alert
General Hydration: appears well hydrated
Cardiovascular Exam
Cardiovascular Exam: regular rate/rhythm, no murmur and normal peripheral pulses
Pulmonary Exam
Pulmonary Exam: lungs clear, no respiratory distress and other (mild anterior chest wall tenderness no ecchymosis or abrasions)
Neurological Exam
Neurological Exam: alert and oriented x3
Musculoskeletal Exam
Musculoskeletal Exam: full ROM
Skin Exam
Skin Exam: normal color and warm/dry
Psychiatric Exam
Psychiatric Exam: normal mood/affect
Course
Orders/Labs/Results
Orders:
Orders
05/16/25 10:19
EKG [Electrocardiogram (*1)] Urgent
Reason for Study: Chest Pain
EKG- Treatment ONCE
05/16/25 10:39
Cardiac Monitoring- Treatment ONCE
IV Insert/Care/Rem.- Treatment PRN
CR Chest - 2 Views Urgent
Comment:
Reason For Exam: cp
05/16/25 11:50
Complete Blood Count/With Diff Urgent
Comprehensive Metabolic Panel Urgent
Troponin I Urgent
Abnormal Lab Results
05/16/25
11:50
WBC 3.6 L 10^3/uL
(4.8-10.8)
RBC 3.76 L 10^6/uL
(4.70-6.10)
Hgb 12.6 L g/dL
(13.0-18.0)
Hct 38.3 L %
(39.0-52.0)
MCV 101.9 H fL
(80.0-94.0)
MCH 33.5 H pg
(27.0-31.0)
MCHC 32.9 L g/dL
(33.0-37.0)
Plt Count 117 L 10^3/uL
(130-400)
MPV 11.7 H fL
(7.4-10.4)
Carbon Dioxide 31 H mmol/L
(22-30)
Creatinine 0.6 L mg/dL
(0.7-1.3)
AST 108 H U/L
(17-59)
ALT 143 H U/L
(0-50)
Alkaline Phosphatase 164 H U/L
(38-126)
05/16/25 11:50
05/16/25 11:50
Vital Signs
Initial and Last Documented VS:
Initial Vital Signs
Temp Pulse Resp BP Pulse Ox
98.5 F 72 18 123/91 98
05/16/25 10:20 05/16/25 10:20 05/16/25 10:20 05/16/25 10:20 05/16/25 10:20
Last Documented Vital Signs
Temp Pulse Resp BP Pulse Ox
98.5 F 70 10 131/80 99
05/16/25 10:20 05/16/25 13:00 05/16/25 13:00 05/16/25 13:00 05/16/25 13:25
MDM/Problems Addressed
Differential Diagnosis Includes:
Not limited to muscular pain, less likely ACS
MDM/Problems Addressed:
Patient has had discomfort in his chest worse with moving twisting turning moving his arms up. Symptoms have been occurring off and on for the past several days.
he is staying on the top bunk and feels that this is likely from getting off and on. Symptoms are consistent with muscular pain. His cardiac troponin is negative no acute findings on EKG. He is in no acute distress nontachypneic nontachycardic
no complaints shortness of breath not hypoxic and afebrile. Patient was seen here and admitted in mid April for withdrawal from substance abuse. Patient has been incarcerated since. hx of elevated lfts which are still presents.
*Radiology
Radiology exam reviewed: radiology read reviewed
*Pulse Oximetry
SaO2: 99
Oxygen Mode of Delivery: Room air
Patient hypoxic: no
*EKG
Interpreted by ED Provider?: Yes
Interpretation: normal
Comparison EKG: no changes
Heart Rate: 76
Rate: normal
*Critical Care Note
Total Time (30-74mins, 75-104mins- exclusive of procedures): Not Applicable
ED Attending Note
-
Portions of this chart may have been created with voice recognition software.� Occasional wrong word or��sound alike� substitutions may have occurred due to the inherent limitations of voice recognition software.
Discharge Plan
Departure
Patient Disposition: Home (Routine Discharge)
Date of Disposition: 05/16/25
Time of Disposition: 13:25
Patient with high blood pressure during this ER visit?: No
Condition: Fair
Covid-19: Not Applicable
Discharge Problem:
Chest wall pain
Instructions: Muscle and Bone Pain (DC), Chest Pain PCP Follow Up
Prescriptions:
No Action
multivitamin Tablet
1 tab PO DAILY
ondansetron HCl 4 mg Tablet
4 mg PO BIDPRN PRN (Reason: nausea/vomiting)
Patient Comments:
04/22/2025, pt. received 4 mg IM today.
thiamine HCl (vitamin B1) 100 mg Tablet
100 mg PO DAILY
folic acid 1 mg Tablet
1 mg PO DAILY
magnesium oxide 400 mg magnesium Tablet
400 mg PO DAILY
naloxone 0.4 mg/mL Solution
0.4 mg IV Q5MPRN PRN (Reason: RR </= 8 breaths/min) Qty: 0 0RF
metronidazole 500 mg Tablet
500 mg PO Q8 3 Days Qty: 9 0RF
clonidine HCl 0.2 mg Tablet
0.2 mg PO TID Qty: 0 0RF
pantoprazole 40 mg Tablet,Delayed Release (Dr/Ec)
40 mg PO BID Qty: 0 0RF
buprenorphine HCl 8 mg Tablet, Sublingual
16 mg sublingual DAILY@0800 Qty: 0 0RF
Referrals:
[facility] [Family Provider, General]
Activity Restrictions/Additional Instructions:
Symptoms are likely musculoskeletal chest wall pain. Patient normal cardiac labs no acute findings on chest x-ray. May have ibuprofen if needed .
Patient should be evaluated by primary practitioner in the next 1-2 days for reevaluation.
return if any worsening of symptoms.
Discharge Date and Time
Print Language: AUSTRIAN
[2025-05-16 11:00] VITALS: BP 130/98
[2025-05-16 12:07] VITALS: BP 133/103
[2025-05-16 12:16] LABS: Hematocrit 38.3 % (39.0-52.0); Hemoglobin 12.6 g/dL (13.0-18.0); Mean Corp Hgb Conc. 32.9 g/dL (33.0-37.0); Mean Corpuscular Volume 101.9 fL (80.0-94.0); Nucleated Red Blood Cells % 0 % (-); Platelet Count 117 10^3/uL (130-400); Red Cell Dist. Width 14.1 % (11.5-14.5)
[2025-05-16 12:26] LABS: ALT (SGPT) 143 U/L (0-50); AST (SGOT) 108 U/L (17-59); Albumin 3.8 g/dl (3.5-5.0); Alkaline Phosphatase 164 U/L (38-126); Blood Urea Nitrogen 9 mg/dl (9-20); Calcium 9.6 mg/dl (8.4-10.2); Carbon Dioxide 31 mmol/L (22-30); Chloride 107 mmol/L (98-107); Glucose 99 mg/dl (70-99); Potassium 4.2 mmol/L (3.5-5.1); Sodium 141 mmol/L (135-145); Total Protein 8.1 g/dl (6.3-8.2); eGFR > 60.00
[2025-05-16 12:39] LABS: Troponin I < 0.012 ng/ml
[2025-05-16 13:00] VITALS: BP 131/80
== END 2025-05-16 13:47 | disposition home or self-care (01) ==
LOC: EMR 10:16
PROVIDERS: Nurse Practitioner; EMERGENCY PHYSICIAN Emergency Medicine
DX: R07.89 Other chest pain (principal); F11.10 Opioid abuse, uncomplicated; Z95.5 Presence of coronary angioplasty implant and graft
CPT/HCPCS: 99284; 71046; 80053; 84484; 85025; 93005